=== PATIENT | female | born 1965 | race Caucasian/White ===

== ENCOUNTER → 2018-11-27 12:16 | Outpatient (CLI) | payer MEDICAID, SELFPAY ==
--- NOTE | 2018-10-31 16:51 | EKG12_ITS ---
Test Reason : PRE OP Blood Pressure : / mmHG Vent. Rate : 070 BPM Atrial Rate : 070 BPM P-R Int : 146 ms QRS Dur : 096 ms QT Int : 444 ms P-R-T Axes : 063 -04 084 degrees QTc Int : 479 ms Normal sinus rhythm Nonspecific ST and T wave abnormality Prolonged QT Abnormal ECG Confirmed by JU AGUILERA, JOSEFINA ([id number]), proposal editor IHSAN MORALES ([id number]) on 11/03/2018 12:07:21 PM Referred By: Jose Camp Confirmed By:JOSEFINA DODD MD
[2018-10-31 17:45] LABS: Hematocrit 20.6 % (37-47); Hemoglobin 6.7 g/dl (12.0-15.0); Mean Corp Hgb Conc 32.5 g/gl (32-36); Mean Corpuscular Hgb 29.6 pg (27.0-32.0); Mean Corpuscular Volume 91.2 fL (81-99); Mean Platelet Vol. 11.4 fl (6.2-12.0); Platelet Count 183 K/mm3 (150-450); RBC Distribution Width CV 14.8 % (11.6-14.6); RBC Distribution Width SD 47.2 fl (35.1-43.9); Red Blood Count 2.26 M/mm3 (4.2-5.4); White Blood Count 4.4 K/mm3 (4.4-11.0)
[2018-10-31 18:02] LABS: Scan Indicated on CBC? Y/N NO
[2018-10-31 18:03] LABS: Anion Gap 7 (5-15); BUN 84 mg/dL (7-18); BUN/Creat Ratio 17.1 RATIO (10-20); Calcium,Total 8.2 mg/dL (8.5-10.1); Chloride 107 mmol/L (98-107); Creatinine, Serum 4.92 mg/dL (0.55-1.02); EST Glomerular Filtration Rate 10 mL/min (>60); Est Glom Filt Rate - Afr Amer 12 mL/min (>60); Glucose 45 mg/dL (74-106); Potassium 4.1 mmol/L (3.5-5.1); Sodium Level 139 mmol/L (136-145)
== END ==
PROVIDERS: Family Provider Student in an Organized Health Care Education/Training Program; PCP Student in an Organized Health Care Education/Training Program; Referring Provider Surgery; Visit Provider Surgery
DX: R94.31 Abnormal electrocardiogram [ECG] [EKG] (principal); Z01.810 Encounter for preprocedural cardiovascular examination; Z01.812 Encounter for preprocedural laboratory examination
CPT/HCPCS: 36415; 80048; 85027; 93005

== ENCOUNTER → 2018-12-12 16:29 | Outpatient (CLI) | payer MEDICAID, SELFPAY ==
[2018-12-08 14:15] VITALS: BMI 41.1
[2018-12-12 17:02] LABS: Glucose 661 mg/dL (74-106)
== END ==
PROVIDERS: Family Provider Student in an Organized Health Care Education/Training Program; PCP Student in an Organized Health Care Education/Training Program; Referring Provider Surgery; Visit Provider Surgery
DX: R73.9 Hyperglycemia, unspecified (principal)
CPT/HCPCS: 82947

== ENCOUNTER 2018-12-12 17:24 | Emergency (ER) | payer MEDICAID, SELFPAY ==
[2018-12-08 14:15] VITALS: BMI 41.1
[2018-12-12 17:25] VITALS: BP 151/69; PULSE 65; RESP 16; TEMP 36.9; O2SAT 97; BMI 39.1
[2018-12-12 17:46] LABS: Bedside Glucose > 500 mg/dL (70-110)
[2018-12-12 18:00] VITALS: BP 170/75; PULSE 64; RESP 18; O2SAT 97
--- NOTE | 2018-12-12 18:50 | RAD_ITS ---
STUDY: X-RAY CHEST REASON FOR EXAM: Female, 53 years old. Cough TECHNIQUE: Frontal view of the chest COMPARISON: None. FINDINGS: Post CABG changes are present. The lungs are clear. There are no pleural effusions. There is no pneumothorax. The heart is enlarged. The visualized osseous structures are within normal limits. RAD/Chest 1 View (Portable) IMPRESSION: No acute thoracic pathology. Cardiomegaly. Electronically Signed: Kvng Dozier, at 19:05 EDT Tel , Service support ,
--- NOTE | 2018-12-12 18:52 | ED.DCSUM_ITS ---
History of Present Illness Chief Complaint: Hyperglycemia Informant: Patient, - - Surgeon Onset: Today Narrative: Patient is a poorly controlled diabetic with chronic renal failure and in need of starting dialysis. She is scheduled to have an AV fistula surgery on Saturday, today is Saturday. She had some routine labs today because of that procedure, and her blood sugar is almost 800. It was repeated and is in the high 600s. She was sent for further evaluation and treatment. The patient states she is having no symptoms today. She has had blurry vision off and on for months, chronic bilateral lower extremity edema for a year or so since she has had kidney probl ems, and states that several hours before getting her blood work, before her last meal, her blood sugar was 200 when she checked it. She states she did not eat a lot of sugar for lunch. - Past Medical History (1) Chronic kidney disease (CKD) stage G5/A1, glomerular filtration rate (GFR) less than or equal to 15 mL/min/1.73 square meter and albuminuria creatinine ratio less than 30 mg/g Status: Chronic (2) Agitated depression Status: Chronic (3) Benign hypertension Status: Chronic (4) CAD (coronary artery disease) Status: Chronic (5) DKA (diabetic ketoacidoses) Status: Resolved Comment: History of DKA (6) HLD (hyperlipidemia) Status: Chronic (7) Obesity Status: Chronic (8) Type I diabetes mellitus, uncontrolled Status: Chronic Past Medical History - Allergies and Home Meds Allergies/Adverse Reactions: Allergies epoetin lazaro [From Procrit] Allergy (Verified 12/12/18 17:28) Hives rosiglitazone [From Avandia] Allergy (Verified 12/12/18 17:28) Unknown Sulfa (Sulfonamide Antibiotics) Allergy (Verified 12/12/18 17:28) Hives metoprolol [From Lopressor] Adverse Reaction (Verified 12/12/18 17:28) Nausea/Vom/Diarrhea tramadol [From Ultram] Adverse Reaction (Verified 12/12/18 17:28) Nausea/Vom/Diarrhea Primary Care Physician: Angelia Olson MD [Primary Care Provider] - Surgical History: appendectomy, cholecystectomy, hysterectomy, dilatation and curettage Smoking Status: Never smoker Drugs: None Review of Systems General: Denies: Chills, Fever, Sweats Eyes: Denies: Visual changes - bilaterally, Diplopia ENT: Denies: Rhinorrhea, Sore throat Cardiovascular: Denies: Chest pain, Palpitations Respiratory: Reports: Cough, Dyspnea on exertion. Denies: Dyspnea, Orthopnea, Paroxysmal nocturnal dyspnea Gastrointestinal: Denies: Abdominal pain, Nausea, Vomiting, Diarrhea, Melena, Hematochezia Genitourinary: Denies: Dysuria, Hematuria, Frequency Musculoskeletal: Reports: Swelling - Bilateral lower extremity, chronic, unchanged. Denies: Neck pain, Back pain, Extremity Pain Skin: Denies: Rash, Wounds Neurological: Denies: Headache, Weakness, Numbness Physical Exam Vital Signs/Narrative: Vital Signs Temp Pulse Resp BP Pulse Ox 12/12/18 18:00 64 18 170/75 H 97 12/12/18 17:25 98.5 F 65 16 151/69 H 97 Inital Vital Signs reviewed: Yes General: Well nourished, Well developed, Obese, No Acute Distress Head: Normocephalic, Atraumatic Eyes: Perrl, EOMI ENT: Moist mucous membranes, No rhinorrhea Neck: Supple, Nontender Cardiovascular: Regular rate, Regular rhythm, Murmur - Systolic, 2/6 Respiratory: No distress, CTA bilaterally, Chest nontender Abdomen: Soft, Nontender, Nondistended, Normal bowel sounds Back: Nontender, Normal Inspection. Negative for: CVA tenderness Extremities: Nontender, Edema - 3+ bilateral lower extremity, symmetric, 2 knees or proximal Skin: Normal color, No rash, No Trauma Neurological: Alert, Oriented x3, Cranial nerves II-XII grossly intact, Normal Strength, Normal Sensation Psychological: Normal Mood. Negative for: Normal affect - Flat affect Diagnostic/Tx/Re-eval Impressions Chest X-Ray 12/12/18 18:50 IMPRESSION: No acute thoracic pathology. Cardiomegaly. Electronically Signed: Kvng Dozier, at 19:05 EDT Tel , Service support , 12/12/18 18:50 CXR [Chest 1 View (Portable)] [RAD] Stat Laboratory Results 12/12/18 12/12/18 12/12/18 17:42 19:00 19:05 Urine Color Yellow Urine Clarity Sl. Cloudy Urine pH 6.0 Ur Specific [place] 1.015 Urine Protein 500 H Urine Glucose (UA) 1000 H Urine Ketones 5 H Urine Occult Blood Negative Urine Nitrite Negative Urine Bilirubin Negative Urine Urobilinogen Normal Ur Leukocyte Esterase Negative Urine RBC 0 SEEN Urine WBC 0 SEEN Ur Squamous Epith Cells 0-5 SEEN Amorphous Sediment 1+ URATE Urine Bacteria 0 SEEN Hyaline Casts 0-5 SEEN Urine Mucus 0 SEEN Acetone Level NEGATIVE POC Glucose > 500 H* 12/12/18 12/12/18 12/12/18 19:09 19:53 21:08 Urine Color Urine Clarity Urine pH Ur Specific [place] Urine Protein Urine Glucose (UA) Urine Ketones Urine Occult Blood Urine Nitrite Urine Bilirubin Urine Urobilinogen Ur Leukocyte Esterase Urine RBC Urine WBC Ur Squamous Epith Cells Amorphous Sediment Urine Bacteria Hyaline Casts Urine Mucus Acetone Level POC Glucose 458 H* 451 H* 289 H 12/12/18 22:04 Urine Color Urine Clarity Urine pH Ur Specific [place] Urine Protein Urine Glucose (UA) Urine Ketones Urine Occult Blood Urine Nitrite Urine Bilirubin Urine Urobilinogen Ur Leukocyte Esterase Urine RBC Urine WBC Ur Squamous Epith Cells Amorphous Sediment Urine Bacteria Hyaline Casts Urine Mucus Acetone Level POC Glucose 261 H - Medical Decision Making Patient was placed on an insulin drip for a couple hours in the emergency department. Her blood sugar came down quicker than expected, she felt shaky, her blood sugar was in the high 200s we stopped the drip. I checked it again a 1/2-hour later and it was a little lower at 260. She is feeling fine. She is not in DKA. She does not meet criteria for admission and she understands this and she prefers to go home anyway. I think that is fine but she is advised to watch her sugars very carefully and to keep them controlled as much as she is able so that she is able to have her procedure on Saturday. She understands and is encouraged to return to the ER for any other issues until then. ED Disposition - Plan for ED Patient: Disposition: Home or Assisted Living Diagnosis: Hyperglycemia due to type 2 diabetes mellitus, Chronic renal failure Instructions: ED Hyperglycemia Diabetic Referrals: Angelia Olson MD [Primary Care Provider] - 3-5 Days if not improving Additional Instructions: Check your blood sugars multiple times throughout the next couple days, use your insulin to keep your blood sugars under control as much as you are able. Return to the ER if you are worse.
[2018-12-12 19:15] LABS: Bedside Glucose 458 mg/dL (70-110)
[2018-12-12 19:16] LABS: Bacteria 0 SEEN /hpf (None Seen); Mucous, Urine 0 SEEN /hpf (<or=2+); Red Blood Cells-Urine 0 SEEN /hpf (0-5); White Blood Cells 0 SEEN /hpf (0-5)
[2018-12-12 19:31] LABS: Color, Urine Yellow (Yellow); Glucose, Dipstick 1000 mg/dl (Normal); Ketone-Dipstick 5 mg/dl (Negative); Leukocyte Esterase-Dipstick Negative /ul (Negative); Nitrite-Dipstick Negative (Negative); Occult Blood-Urine Negative /ul (Negative); Protein-Dipstick 500 mg/dl (Negative); Specific Gravity, Urine 1.015 (1.002-1.030); Urine Bilirubin Dipstick Negative (Negative); Urine Clarity Sl. Cloudy (Clear); Urine Urobilinogen Normal (Normal)
[2018-12-12 19:52] LABS: Amorphous Sediment 1+ URATE; Hyaline Cast 0-5 SEEN /lpf (0-5); Squamous Epithelial Cells - UA 0-5 SEEN /hpf (5-10)
[2018-12-12 20:13] VITALS: BP 173/74; PULSE 63; RESP 18; O2SAT 94
[2018-12-12 20:16] LABS: Bedside Glucose 451 mg/dL (70-110)
[2018-12-12 21:16] LABS: Bedside Glucose 289 mg/dL (70-110)
[2018-12-12 22:02] VITALS: BP 161/74; PULSE 62; RESP 17; O2SAT 94
[2018-12-12 22:10] LABS: Bedside Glucose 261 mg/dL (70-110)
== END 2018-12-12 23:25 | disposition home or self-care (01) ==
PROVIDERS: Emergency Provider Emergency Medicine; Family Provider Student in an Organized Health Care Education/Training Program; PCP Student in an Organized Health Care Education/Training Program
DX: E11.65 Type 2 diabetes mellitus with hyperglycemia (principal); E11.22 Type 2 diabetes mellitus with diabetic chronic kidney disease; F32.9 Major depressive disorder, single episode, unspecified; I12.9 Hypertensive chronic kidney disease with stage 1 through stage 4 chronic kidney disease, or unspecified chronic kidney disease; N18.9 Chronic kidney disease, unspecified; I25.10 Atherosclerotic heart disease of native coronary artery without angina pectoris; E78.5 Hyperlipidemia, unspecified; E66.9 Obesity, unspecified; Z88.2 Allergy status to sulfonamides; Z90.49 Acquired absence of other specified parts of digestive tract; Z90.710 Acquired absence of both cervix and uterus
CPT/HCPCS: 71045; 81001; 82009; 82947; 82962; 99283; A4216

== ENCOUNTER 2018-12-15 05:26 | Day surgery (SDC) | payer MEDICAID, SELFPAY ==
[2018-10-29 13:26] VITALS: BMI 41.1
--- NOTE | 2018-12-09 10:50 | HP_ITS ---
Intake Vital Signs 12/08/18 Body Mass Index (BMI) 41.1 12/08/18 Height 5 ft 5 in 12/08/18 Weight: 235 lb 12/08/18 Body Mass Index (BMI) 39.1 12/08/18 Blood Pressure 144/78 H 12/08/18 Blood Pressure Location Lt brachial 12/08/18 Blood Pressure Position Sitting 12/08/18 Respiratory Rate 14 12/08/18 Pulse Rate 61 12/08/18 Pulse Source Monitor 12/08/18 Temperature 97.8 F 12/08/18 Temperature Source Oral 12/08/18 Pulse Ox 97 12/08/18 Oxygen Delivery Method room air Intake Visit Reasons: upate h&p L fa xpos 6-10 Allergies rosiglitazone [From Avandia] Allergy (Verified 10/30/18 15:44) Unknown Sulfa (Sulfonamide Antibiotics) Allergy (Verified 10/30/18 15:44) Hives metoprolol [From Lopressor] Adverse Reaction (Verified 10/30/18 15:44) Nausea/Vom/Diarrhea tramadol [From Ultram] Adverse Reaction (Verified 10/30/18 15:44) Nausea/Vom/Diarrhea Medications Aspirin E.C. [Ecotrin] 81 mg PO DAILY@0800 02/10/16 [History Confirmed 10/30/18] Atorvastatin Calcium [Lipitor] 80 mg PO QHS 02/10/16 [History Confirmed 10/30/18] Buspirone HCl 7.5 mg PO BID 02/10/16 [History Confirmed 10/30/18] Carvedilol [Coreg] 25 mg PO BID 02/10/16 [History Confirmed 10/30/18] Cholecalciferol (Vitamin D3) [Vitamin D3] 5,000 unit PO DAILY 02/10/16 [History Confirmed 10/30/18] Citalopram [Celexa] 40 mg PO DAILY 02/10/16 [History Confirmed 10/30/18] Levothyroxine [Synthroid] 112 mcg PO DAILY 02/10/16 [History Confirmed 10/30/18] Multivitamins,Therapeutic [Multivitamin] 1 tab PO DAILY 02/10/16 [History Confirmed 10/30/18] apixaban 2.5 mg tablet 2.5 mg PO BID 10/29/18 [History Confirmed 10/30/18] bumetanide 2 mg tablet 2 mg PO BID 10/29/18 [History Confirmed 10/30/18] ferrous sulfate 325 mg (65 mg iron) tablet 325 mg PO DAILY tab 10/29/18 [History Confirmed 10/30/18] hydralazine 25 mg tablet 25 mg PO LUNCH tab 10/29/18 [History Confirmed 10/30/18] hydralazine 50 mg tablet 50 mg PO BID tab 10/29/18 [History Confirmed 10/30/18] insulin glargine (U-300) conc. 300 unit/mL (1.5 mL) subcutaneous pen 24 unit SC QHS 10/29/18 [History Confirmed 10/30/18] insulin lispro (U- 100) 100 unit/mL subcutaneous solution 18 unit SC TID 10/29/18 [History Confirmed 10/30/18] metoclopramide 10 mg tablet 10 mg PO Q6H PRN 10/29/18 [History Confirmed 10/30/18] pantoprazole 40 mg tablet,delayed release 40 mg PO BID 10/29/18 [History Confirmed 10/30/18] promethazine 12.5 mg tablet 12.5 mg PO Q6H PRN 10/29/18 [History Confirmed 10/30/18] Acetaminophen [Tylenol Arthritis] 650 mg PO Q8H PRN 10/30/18 [History Confirmed 10/30/18] PFS Medical History Chronic kidney disease (CKD) stage G5/A1, glomerular filtration rate (GFR) less than or equal to 15 mL/min/1.73 square meter and albuminuria creatinine ratio less than 30 mg/g (Acute) Anemia (Acute) Anxiety and depression (Acute) Atrial fibrillation (Acute) CHF (congestive heart failure) (Acute) Diabetes (Acute) GERD (gastroesophageal reflux disease) (Acute) Heart disease (Acute) Hypothyroidism (Acute) Rheumatoid arthritis (Acute) Sleep apnea (Acute) HTN (hypertension) (Chronic) Surgical History History of appendectomy (Acute) History of bilateral carpal tunnel release (Acute) History of cardiac catheterization (Acute) History of cholecystectomy (Acute) History of colonoscopy (Acute) History of hysterectomy (Acute) History of rotator cuff surgery (Acute) history of cabg x4 (Acute) Family History Mother Heart disease Crohns disease Brother Heart disease Social History Smoking Status: Never smoker alcohol intake: never substance use type: does not use caffeine: Yes what type of physical activity do you participate in: walking frequency: 1-2 times per week HPI HPI HPI: ERIKA DE LUNA, is a 53 F who presents to the office today for HPI HPI Surgical H&P: Yes HPI: ERIKA DE LUNA, is a 53 F who presents to the office today for an update history and physical for an upcoming transposition left forearm cephalic vein to radial artery arteriovenous hemodialysis fistula creation. Patient noted an ED visit since the last time she was in our office. Patient had a Procrit injection. She developed hives and was given a steroid which in turn increased her glucose level. She denies being admitted for the reaction. Patient is not currently on dialysis. She follows with Dr. Murry, 2nd pressman out of [place]. She notes he would like her to start dialysis in the very near future. She would dialyze at [facility] when she starts. Patient is currently on Eliquis and ASA for A Fib. She denies previous myocardial infarction, stroke, and blood clots. Patient has had difficulty with decreased hemoglobin. Patient was evaluated by Dr. Murry. Clearance was given to proceed with the proposed procedure. Patient's previous history per Dr. Camp: ERIKA DE LUNA, is a 53 F who presents to the office today for surgical consultation regarding arteriovenous hemodialysis fistula creation. The patient is referred kindly by her 2nd pressman [address]. Abelardo Mejia a written compromise surgical consult recommendations will be returned to him. The patient's been a long-term diabetic since 1996. She claims that she checks her sugars at least 3-4 times per day. May 2014 she had coronary bypass grafting x4. That was an evaluation and treatment of chest pain. She denies myocardial infarction. She is right arm dominant. She has had multiple hospitalizations. She states that they are typically either for chronic kidney disease or diabetes out of control. On October 24, 2018 at [facility] she had vein mapping for fistula performed. Interpretation simply states no focal venous abnormality. Unfortunately that study does not give me the dimensions of the veins interrogated. She is on multiple different medications including aspirin and Eliquis. She is not sure why she is on the Eliquis. As of October 06, 2018 her white blood cell count was 5.9 with hemoglobin 9.3 hematocrit 25.7 platelet count 179,000. BUN was 53 and creatinine 3.9 with a GFR of 12. She currently is denying any chest pain or palpitations. ROS General General: Yes weight change and fatigue; no appetite, colon cancer, breast cancer or weakness HEENT HEENT: No difficulty swallowing, eye injury, eye surgery, swollen glands or hoarseness Endo Endocrine: Yes thyroid disease and diabetes mellitus; no thyroid cancer, Hair loss, heat intolerance or cold intolerance Musc Musculoskeletal: Yes arthritis and rheumatoid arthritis; no back problems, gout or joint pain Cardio Cardiovascular: Yes murmur, heart disease, atrial fibrillation and high blood pressure; no pacemaker, heart attack, heart stent, palpitations, shortness of breat with exertion or chest pain Psych Psychiatric: Yes depression and anxiety; no hearing voices Resp Respiratory: No shortness of breath, Yes sleep apnea, No cough, No COPD, No asthma, No emphysema, No wheezing Gastro Gastrointestinal: No abdominal pain, Yes nausea or vomiting, Yes diarrhea, Yes constipation, No blood in stool, Yes acid reflux, No hemorrhoids, No ulcers, No gallbladder problem, No black,tarry stools Neuro Neurologic: No weakness Exam Const General: cooperative, comfortable, no acute distress [facility] Head: normal to inspection Eyes General: appearance normal, both eyes and all related structures Neck Neck: normal visual inspection Neck mass: No Resp Effort & Inspection: normal respiratory effort Auscultation: clear to auscultation bilaterally Cardio Rate: regular rate Rhythm: regular rhythm Heart Sounds: murmur GI Inspection: normal to inspection Palpation: soft Auscultation: normal bowel sounds Skin General: no rashes or lesions noted Neuro General: no focal motor deficits, CN's II-XI intact bilaterally Extrem General: normal to inspection Psych Appearance: grossly normal Affect: normal affect Assessment & Plan Problems 1. Chronic kidney disease (CKD) stage G5/A1, glomerular filtration rate (GFR) less than or equal to 15 mL/min/1.73 square meter and albuminuria creatinine ratio less than 30 mg/g N18.[address] Camp will plan to perform a transposition left forearm cephalic vein to radial artery arteriovenous hemodialysis fistula creation. Procedure details, risks, and benefits have been reviewed. Patient has had the opportunity to ask and have questions answered. Patient verbally understands and agrees with the plan. Plan to hold Eliquis for 2 days prior to the procedure. May continue ASA. Coding Level of Care Code No Charge Diagnoses Chronic kidney disease (CKD) stage G5/A1, glomerular filtration rate (GFR) less than or equal to 15 mL/min/1.73 square meter and albuminuria creatinine ratio less than 30 mg/g N18.5 Comment Update H&P 12/09/18 1050 <Electronically signed by Samantha Orellana PA-C> Date Samantha Orellana PA-C Addendum On preoperative laboratory the patient was noted to have a markedly elevated serum glucose. It was rechecked and still noted to be elevated He was sent to the [facility] emergency room and underwent urgent treatment. It was felt that she did not meet criteria for discharge. She was given strict instructions regarding glucose management for over the weekend to make it possible to proceed with surgery today. The patient remains with significant multiple medical comorbidities including chronic severe anemia and glucose control and medical noncompliance Jose Camp M.D., F.A.C.S.
--- NOTE | 2018-12-12 14:24 | EKG12_ITS ---
Test Reason : PREOP 12/15/18 Blood Pressure : / mmHG Vent. Rate : 061 BPM Atrial Rate : 061 BPM P-R Int : 162 ms QRS Dur : 096 ms QT Int : 460 ms P-R-T Axes : 045 011 058 degrees QTc Int : 463 ms Normal sinus rhythm Possible Left atrial enlargement Nonspecific T wave abnormality Prolonged QT Abnormal ECG Confirmed by JU AGUILERA, JOSEFINA ([id number]), editor city [place] OLIVEIRA ([id number]) on 12/17/2018 11:29:17 AM Referred By: Jose Camp Confirmed By:JOSEFINA DODD MD
[2018-12-12 14:57] LABS: Hematocrit 23.4 % (37-47); Hemoglobin 7.7 g/dl (12.0-15.0); Mean Corp Hgb Conc 32.9 g/gl (32-36); Mean Corpuscular Hgb 29.5 pg (27.0-32.0); Mean Corpuscular Volume 89.7 fL (81-99); Mean Platelet Vol. 12.1 fl (6.2-12.0); Platelet Count 138 K/mm3 (150-450); RBC Distribution Width CV 13.4 % (11.6-14.6); RBC Distribution Width SD 43.6 fl (35.1-43.9); Red Blood Count 2.61 M/mm3 (4.2-5.4); White Blood Count 6.6 K/mm3 (4.4-11.0)
[2018-12-12 15:01] LABS: Scan Indicated on CBC? Y/N NO
[2018-12-12 15:38] LABS: Anion Gap 19 (5-15); BUN 78 mg/dL (7-18); Chloride 95 mmol/L (98-107); Creatinine, Serum 6.02 mg/dL (0.55-1.02); EST Glomerular Filtration Rate 8 mL/min (>60); Est Glom Filt Rate - Afr Amer 9 mL/min (>60); Glucose 767 mg/dL (74-106); Potassium 4.8 mmol/L (3.5-5.1); Sodium Level 128 mmol/L (136-145)
[2018-12-15] VITALS (10 sets, daily range): BP systolic 139–166; BP diastolic 60–73; PULSE 59–66; RESP 14–16; TEMP 36.4–36.8; O2SAT 92–99; BMI 39.2
[2018-12-15 06:16] LABS: Bedside Glucose 119 mg/dL (70-110)
--- NOTE | 2018-12-15 07:19 | DCINST_ITS ---
Discharge Diet: Renal Diet Discharge Activity: May Not Drive - for 2-3 days or while taking narcotic pain medications., May Shower, May Take a Tub Bath - in 5 days. Lifting Restrictions: 5 pounds Keep extremity elevated above heart level: - - Keep arm elevated above the heart level for 3 days. Additional Activity Instructions:: Exercise hand vigorously with a stress ball. Call your doctor if your incision/area has: Continuous Slow Oozing, Sudden Increased Bleeding - apply pressure and call your doctor., Increased Pain/ Swelling, Increased Redness, Foul Smelling Discharge Call your doctor if you observe: Fever of 101 or Higher Suture Line Care: Avoid Pulling/Pushing, Avoid Pinching/Bending Cleanse incision/area with: Keep Dressing Clean & Dry Additional Dressing/Incision Instructions:: Change or remove dressing in one day. May protect with a gauze bandaid. Allergies/Adverse Reactions: Allergies epoetin lazaro [From Procrit] Allergy (Verified 12/12/18 17:28) Hives rosiglitazone [From Avandia] Allergy (Verified 12/12/18 17:28) Unknown Sulfa (Sulfonamide Antibiotics) Allergy (Verified 12/12/18 17:28) Hives metoprolol [From Lopressor] Adverse Reaction (Verified 12/12/18 17:28) Nausea/Vom/Diarrhea tramadol [From Ultram] Adverse Reaction (Verified 12/12/18 17:28) Nausea/Vom/Diarrhea Medications to take at Discharge Aspirin E.C. [Ecotrin] 81 mg PO DAILY@0800 02/10/16 Atorvastatin Calcium [Lipitor] 80 mg PO QHS 02/10/16 Buspirone HCl 7.5 mg PO BID 02/10/16 Carvedilol [Coreg] 25 mg PO BID 02/10/16 Cholecalciferol (Vitamin D3) [Vitamin D3] 5,000 unit PO DAILY 02/10/16 Citalopram [Celexa] 40 mg PO DAILY 02/10/16 Levothyroxine [Synthroid] 112 mcg PO DAILY 02/10/16 Multivitamins,Therapeutic [Multivitamin] 1 tab PO DAILY 02/10/16 apixaban 2.5 mg tablet 2.5 mg PO BID 10/29/18 bumetanide 2 mg tablet 2 mg PO BID 10/29/18 ferrous sulfate 325 mg (65 mg iron) tablet 325 mg PO DAILY tab 10/29/18 hydralazine 50 mg tablet 50 mg PO TID tab 10/29/18 insulin glargine (U-300) conc. 300 unit/mL (1.5 mL) subcutaneous pen 24 unit SC QHS 10/29/18 metoclopramide 10 mg tablet 10 mg PO Q6H PRN 10/29/18 pantoprazole 40 mg tablet,delayed release 40 mg PO BID 10/29/18 promethazine 12.5 mg tablet 12.5 mg PO Q6H PRN 10/29/18 Acetaminophen [Tylenol Arthritis] 650 mg PO Q8H PRN 10/30/18 Amlodipine Besylate [Norvasc] 10 mg PO DAILY 12/11/18 Insulin Lispro [Admelog] 18 unit SQ TID 12/11/18 Primary Care Physician: Angelia Olson MD [Primary Care Provider] - Test Results: Test results from this visit will be discussed in further detail at your follow- up appointment, if applicable. Please Follow Up With: Jose Camp MD - [phone] When: Call to make an appointment for follow up in 1 week.
[2018-12-15] MEDS: Heparin Injection (Vial) 5,000 UNIT/ML VIAL 5000 UNIT (07:32)
[2018-12-15] MEDS: Bupivacaine Mpf 0.5% 30 ML VIAL (08:45)
--- NOTE | 2018-12-15 08:51 | PCM.OPRPT ---
Problem List (1) Chronic kidney disease (CKD) stage G5/A1, glomerular filtration rate (GFR) less than or equal to 15 mL/min/1.73 square meter and albuminuria creatinine ratio less than 30 mg/g Status: Chronic Report of Operation Date of Procedure: 12/15/18 Pre-Operative Diagnosis: stage IV chronic renal failure Post-Operative Diagnosis: Same Surgery/Procedure Performed:: Transposition left forearm cephalic vein to radial artery arteriovenous hemodialysis fistula creation Description of Surgical Findings:: Timeout and informed consent was obtained. 53-year-old female was taken out from placement table underwent monitored anesthesia care. The left upper extremity was sterilely prepped and draped. 22 cc of 1% lidocaine mixed 50-50 with 0.5% Marcaine and 5 cc of 1/2% lidocaine was used as a local anesthetic. Ultrasound was performed identifying the cephalic vein in the in the distal third of the forearm with the distal becoming quite diminutive. Local was instilled a longitudinal incision was created sharp and blunt dissection was used to identify the cephalic vein was dissected free side branches secured with 4-0 Vicryl ligatures and hemoclips it was completely dissected up to the antecubital space. In the anterior surface was inked marked. I measured the length. I made a longitudinal incision and down in the distal third of the forearm and sharp and blunt dissection was used to identify the radial artery. This was rather tedious as the patient is quite obese. Was able to get a ventral dissection of the radial artery several clips were placed to allow for better mobilization. Then I ligated the vein distally of the side branch with hemoclips and then I spatulated that area. I tunneled the vein with a tunneler from the antecubital space to the approximately distal third to mid forearm. The patient then received 10,000 units of heparin. Peripheral vascular clamps were placed on the radial radial artery 11 blade was used to make an arteriotomy which I extended with Jensen scissors. The vein at the branch point spatulation site was then placed in an end-to-side fashion with a running 7-0 Prolene. Prior to completion there is good arterial inflow the anastomosis was completed was immediately hemostatic. There was good flow in the fistula and good positional lie. The wounds were closed with a deep layer of interrupted 3-0 Vicryl's subcutaneous stitches. Skin edges proximal and running septic or 4-0 Monocryl. Steri-Strips Telfa soft roll Ren wrap applied. Sponge and instrument and needle counts were reported the surgeon for correct. Blood loss was actually quite minimal. Specimens none drains none blood loss minimal Patient had a very viable hand. She was taken to the recovery area in satisfactory condition without apparent complication. Jose Camp M.D., F.A.C.S. Type of Anesthesia:: Local MAC Anesthesiologist: Sania Barrett
--- NOTE | 2018-12-15 08:55 | OP.PCM_ITS ---
Problem List (1) Chronic kidney disease (CKD) stage G5/A1, glomerular filtration rate (GFR) less than or equal to 15 mL/min/1.73 square meter and albuminuria creatinine ratio less than 30 mg/g Status: Chronic Report of Operation Date of Procedure: 12/15/18 Pre-Operative Diagnosis: stage IV chronic renal failure Post-Operative Diagnosis: Same Surgery/Procedure Performed:: Transposition left forearm cephalic vein to radial artery arteriovenous hemodialysis fistula creation Description of Surgical Findings:: Timeout and informed consent was obtained. 53-year-old female was taken out fr om placement table underwent monitored anesthesia care. The left upper extremity was sterilely prepped and draped. 22 cc of 1% lidocaine mixed 50-50 with 0.5% Marcaine and 5 cc of 1/2% lidocaine was used as a local anesthetic. Ultrasound was performed identifying the cephalic vein in the in the distal third of the forearm with the distal becoming quite diminutive. Local was instilled a longitudinal incision was created sharp and blunt dissection was used to identify the cephalic vein was dissected free side branches secured with 4-0 Vicryl ligatures and hemoclips it was completely dissected up to the antecubital space. In the anterior surface was inked marked. I measured the length. I made a longitudinal incision and down in the distal third of the forearm and sharp and blunt dissection was used to identify the radial artery. This was rather tedious as the patient is quite obese. Was able to get a ventral dissection of the radial artery several clips were placed to allow for b monroe mobilization. Then I ligated the vein distally of the side branch with hemoclips and then I spatulated that area. I tunneled the vein with a tunneler from the antecubital space to the approximately distal third to mid forearm. The patient then received 10,000 units of heparin. Peripheral vascular clamps were placed on the radial radial artery 11 blade was used to make an arteriotomy which I extended with Jensen scissors. The vein at the branch point spatulation site was then placed in an end-to-side fashion with a running 7-0 Prolene. Prior to completion there is good arterial inflow the anastomosis was completed was immediately hemostatic. There was good flow in the fistula and good positional lie. The wounds were closed with a deep layer of interrupted 3-0 Vicryl's subcutane ous stitches. Skin edges proximal and running septic or 4-0 Monocryl. Steri- Strips Telfa soft roll Ren wrap applied. Sponge and instrument and needle counts were reported the surgeon for correct. Blood loss was actually quite minimal. Specimens none drains none blood loss minimal Patient had a very viable hand. She was taken to the recovery area in satisfactory condition without apparent complication. Jose Camp M.D., F.A.C.S. Type of Anesthesia:: Local MAC Anesthesiologist: Sania Barrett
[2018-12-15 10:25] LABS: Bedside Glucose 158 mg/dL (70-110)
== END 2018-12-15 14:48 | disposition home or self-care (01) ==
LOC: SDC 05:27 → AC 05:28
PROVIDERS: Family Provider Student in an Organized Health Care Education/Training Program; PCP Student in an Organized Health Care Education/Training Program; Referring Provider Surgery; Visit Provider Surgery
PROC: (CPT 36821; principal; 2018-12-15 07:00)
DX: I12.9 Hypertensive chronic kidney disease with stage 1 through stage 4 chronic kidney disease, or unspecified chronic kidney disease (principal); N18.4 Chronic kidney disease, stage 4 (severe); E11.22 Type 2 diabetes mellitus with diabetic chronic kidney disease; I48.91 Unspecified atrial fibrillation; Z95.1 Presence of aortocoronary bypass graft; E66.9 Obesity, unspecified; D64.9 Anemia, unspecified; Z91.19 Patient's noncompliance with other medical treatment and regimen; I25.10 Atherosclerotic heart disease of native coronary artery without angina pectoris; Z86.73 Personal history of transient ischemic attack (TIA), and cerebral infarction without residual deficits
CPT/HCPCS: 01844; 36821; 36415; 80048; 82962; 85027; 93005; J2405

== ENCOUNTER → 2019-04-02 11:02 | Outpatient (CLI) | payer MEDICAID, SELFPAY ==
[2018-12-15 05:57] VITALS: BMI 39.2
--- NOTE | 2019-04-02 11:04 | VDUE_ITS ---
Reason For Study: Chronic kidney disease Right Arm Left Arm Right Cephalic Vein at the wrist measures Lt failed Radialcephalic AVF noted. 0.10 x 0.12 cm. Left Cephalic Vein above antecub measures 0.12 Right Cephalic Vein in the forearm measures x 0.13 cm. 0.20 x 0.21 cm. Left Cephalic Vein at mid bicep measures 0.17 Right Cephalic Vein below antecub measures x 0.23 cm. 0.20 x 0.22 cm. Left Cephalic Vein at the shoulder measures Right Cephalic Vein above antecub measures 0.18 x 0.25 cm. 0.21 x 0.23 cm. Basilic vein at origin measures 0.51 x 0.53 Right Cephalic Vein mid bicep measures 0.18 cm. x 0.19 cm. Basilic vein at bicep measures 0.45 x 0.47 cm. Right Cephalic Vein at the shoulder Basilic vein above antecub measures 0.64 x measures 0.18 x 0.17 cm. 0.69 cm. Right Basilic Vein at the origin measures Lt Brachial artery measures 0.41 x 0.39 cm 0.38 x 0.41 cm. with a velocity of 149.3 cm/sec. Right Basilic Vein mid bicep measures 0.23 x 0.25 cm. Right Basilic Vein above antecub measures 0.20 x 0.23 cm. Right Brachial artery measures 0.45 x 0.45 cm with a velocity of 128.6 cm/sec. Right Radial artery measures 0.17 x 0.17 cm with a velocity of 100 cm/sec. Interpretation Summary Patent and compressible bilateral cephalic and basilic veins other than thrombosed left forearm radiocephalic fistula Normal diameter and flow bilateral brachial arteries Small right radial artery Ordering Physician: Jose Camp Referring Physician: Angelia Olson Performed By: Willinger, Sirisha, RVT ?
== END ==
PROVIDERS: Family Provider Student in an Organized Health Care Education/Training Program; PCP Student in an Organized Health Care Education/Training Program; Referring Provider Surgery; Visit Provider Surgery
DX: N18.5 Chronic kidney disease, stage 5 (principal)
CPT/HCPCS: 93970

== ENCOUNTER 2019-04-20 06:58 | Day surgery (SDC) | payer MEDICAID, SELFPAY ==
--- NOTE | 2019-04-07 03:20 | HP_ITS ---
Intake Vital Signs 04/07/19 Body Mass Index (BMI) 39.2 04/07/19 Blood Pressure 150/71 H 04/07/19 Blood Pressure Location Rt brachial 04/07/19 Blood Pressure Position Sitting 04/07/19 Respiratory Rate 20 H 04/07/19 Pulse Rate 76 04/07/19 Pulse Ox 94 Intake Visit Reasons: Check Fistula Chief Complaint: fistula check Server Assistant Required: No Is patient in pain?: No Allergies epoetin lazaro [From Procrit] Allergy (Verified 04/07/19 14:50) Hives rosiglitazone [From Avandia] Allergy (Verified 04/07/19 14:50) Unknown Sulfa (Sulfonamide Antibiotics) Allergy (Verified 04/07/19 14:50) Hives metoprolol [From Lopressor] Adverse Reaction (Verified 04/07/19 14:50) Nausea/Vom/Diarrhea tramadol [From Ultram] Adverse Reaction (Verified 04/07/19 14:50) Nausea/Vom/Diarrhea Medications Aspirin E.C. [Ecotrin] 81 mg PO DAILY@0800 02/10/16 [History Confirmed 04/07/19] Atorvastatin Calcium [Lipitor] 80 mg PO QHS 02/10/16 [History Confirmed 04/07/19] Buspirone HCl 7.5 mg PO BID 02/10/16 [History Confirmed 04/07/19] Carvedilol [Coreg (Beta Sully)] 25 mg PO BID 02/10/16 [History Confirmed 04/07/19] Cholecalciferol (Vitamin D3) [Vitamin D3] 5,000 unit PO DAILY 02/10/16 [History Confirmed 04/07/19] Citalopram [Celexa] 40 mg PO DAILY 02/10/16 [History Confirmed 04/07/19] Levothyroxine [Synthroid] 112 mcg PO DAILY 02/10/16 [History Confirmed 04/07/19] Multivitamins,Therapeutic [Multivitamin] 1 tab PO DAILY 02/10/16 [History Confirmed 04/07/19] apixaban 2.5 mg tablet 2.5 mg PO BID 10/29/18 [History Confirmed 04/07/19] bumetanide 2 mg tablet 2 mg PO BID 10/29/18 [History Confirmed 04/07/19] ferrous sulfate 325 mg (65 mg iron) tablet 325 mg PO DAILY tab 10/29/18 [History Confirmed 04/07/19] hydralazine 50 mg tablet 50 mg PO TID tab 10/29/18 [History Confirmed 04/07/19] insulin glargine (U-300) conc. 300 unit/mL (1.5 mL) subcutaneous pen 24 unit SC QHS 10/29/18 [History Confirmed 04/07/19] metoclopramide 10 mg tablet 10 mg PO Q6H PRN 10/29/18 [History Confirmed 04/07/19] pantoprazole 40 mg tablet,delayed release 40 mg PO BID 10/29/18 [History Confirmed 04/07/19] promethazine 12.5 mg tablet 12.5 mg PO Q6H PRN 10/29/18 [History Confirmed 04/07/19] Acetaminophen [Tylenol Arthritis] 650 mg PO Q8H PRN 10/30/18 [History Confirmed 04/07/19] Amlodipine Besylate [Norvasc] 10 mg PO DAILY 12/11/18 [History Confirmed 04/07/19] Insulin Lispro [Admelog] 18 unit SQ TID 12/11/18 [History Confirmed 04/07/19] Is last menstrual period known: No Post menopausal: Yes Patient : No PFSH Medical History Chronic kidney disease (CKD) stage G5/A1, glomerular filtration rate (GFR) less than or equal to 15 mL/min/1.73 square meter and albuminuria creatinine ratio less than 30 mg/g (Chronic) Anemia (Acute) Anxiety and depression (Acute) Atrial fibrillation (Acute) CHF (congestive heart failure) (Acute) Diabetes (Acute) GERD (gastroesophageal reflux disease) (Acute) Heart disease (Acute) Hypothyroidism (Acute) Rheumatoid arthritis (Acute) Sleep apnea (Acute) HTN (hypertension) (Chronic) Surgical History History of appendectomy (Acute) History of bilateral carpal tunnel release (Acute) History of cardiac catheterization (Acute) History of cholecystectomy (Acute) History of colonoscopy (Acute) History of hysterectomy (Acute) History of rotator cuff surgery (Acute) history of cabg x4 (Acute) Family History Mother Heart disease Crohns disease Brother Heart disease Social History (Updated 04/07/19 @ 15:20 by Jose Camp MD) Smoking Status: Never smoker alcohol intake: never substance use type: does not use caffeine: Yes what type of physical activity do you participate in: walking frequency: 1-2 times per week HPI HPI HPI: ERIKA DE LUNA, is a 53 F who presents to the office today for HPI HPI Surgical H&P: Yes HPI: ERIKA DE LUNA, is a 53 F who presents to the office today for surgical consultation regarding a thrombosed left forearm transposed cephalic vein to radial artery AV fistula. On December 15, 2018 I performed this procedure for her. She states that she had utilized it for hemodialysis for approximately 1 month prior to clot being drawn out of it. In my absence she states that she is referred to [place] where she had an urgent fistulogram done and was told that the fistula was not salvageable. She had right internal jugular tunneled dialysis catheters placed. It is of note that this fistula failed in spite of her being on Eliquis and aspirin. On April 02, 2019 at the [facility] she had bilateral upper extremity vein mapping. This demonstrates a very diminutive left upper arm cephalic vein. The left upper arm basilic vein is adequate. The left forearm was not interrogated because of the report of the failed fistula. The patient has no specific complaints today. I do not have records of her fistulogram performed at [place] ROS General General: Yes weight change and fatigue; no appetite, colon cancer, breast cancer or weakness HEENT HEENT: No difficulty swallowing, eye injury, eye surgery, swollen glands or hoarseness Endo Endocrine: Yes thyroid disease and diabetes mellitus; no thyroid cancer, Hair loss, heat intolerance or cold intolerance Musc Musculoskeletal: Yes arthritis and rheumatoid arthritis; no back problems, gout or joint pain Cardio Cardiovascular: Yes murmur, heart disease, atrial fibrillation and high blood pressure; no pacemaker, heart attack, heart stent, palpitations, shortness of breat with exertion or chest pain Psych Psychiatric: Yes depression and anxiety; no hearing voices Resp Respiratory: No shortness of breath, Yes sleep apnea, No cough, No COPD, No asthma, No emphysema, No wheezing Gastro Gastrointestinal: No abdominal pain, Yes nausea or vomiting, Yes diarrhea, Yes constipation, No blood in stool, Yes acid reflux, No hemorrhoids, No ulcers, No gallbladder problem, No black,tarry stools Neuro Neurologic: No weakness Exam Const General: cooperative Nutritional Appearance: average body habitus Orientation: alert, awake Resp Effort & Inspection: normal respiratory effort Auscultation: clear to auscultation bilaterally Cardio Rate: regular rate Rhythm: regular rhythm Heart Sounds: murmur GI Inspection: normal to inspection Palpation: soft Auscultation: normal bowel sounds Neuro Cognition: normal cognition Extrem Other: Significant bilateral lower extremity edema Left upper extremity: Well-healed forearm incision. The transposed cephalic vein to radial artery AV fistula does have a pulse and thrill and bruit. On ultrasound inspection there is evidence of wall thickening or residual thrombus but a patent lumen is noted throughout. The left upper arm cephalic vein is diminutive. The left upper arm basilic vein adequate Assessment & Plan Problems 1. Problem with vascular access Z78.9 Plan Previous information that we had received suggested that her left forearm AV fistula was completely thrombosed. That is clinically not the case both palpation and audible inspection and ultrasound. The patient does have future limited potential options for fistula creation. I proposed for her a repeat attempt at a left forearm fistulogram. I would anticipate using ultrasound access close to the antecubital space retrograde with flow. I would anticipate likely a long balloon treatment. She has had an opportunity to ask and have questions answered. She is willing to proceed as noted. If this is not successful then I would anticipate a future transposed left upper arm basilic vein to brachial artery AV fistula in one stage approach. The patient's left upper arm basilic vein has already partially matured. CC: Dr. Abelardo Camp M.D., F.A.C.S. Coding Level of Care Code Off vis,est,level 3 Diagnoses Problem with vascular access Z78.9 04/07/19 1520 <Electronically signed by Jose parson MD> Date _ Jose Camp MD I have re-examined the patient. There are no clinical changes since date of exam.
[2019-04-07 14:51] VITALS: BMI 39.2
[2019-04-20 07:10] LABS: Hematocrit 25.3 % (37-47); Hemoglobin 8.7 g/dL (12.0-15.0); Mean Corp Hgb Conc 34.4 g/dL (32-36); Mean Corpuscular Hgb 30.9 pg (27.0-32.0); Mean Corpuscular Volume 89.7 fL (81-99); Mean Platelet Vol. 9.9 fl (6.2-12.0); Platelet Count 229 K/mm3 (150-450); RBC Distribution Width CV 15.2 % (11.6-14.6); RBC Distribution Width SD 49.1 fl (35.1-43.9); Red Blood Count 2.82 M/mm3 (4.2-5.4); White Blood Count 5.7 K/mm3 (4.4-11.0)
[2019-04-20 07:17] VITALS: BMI 36.6
[2019-04-20 07:23] LABS: Anion Gap 13 (5-15); BUN 75 mg/dL (7-18); BUN/Creat Ratio 13.5 RATIO (10-20); Calcium,Total 8.6 mg/dL (8.5-10.1); Chloride 97 mmol/L (98-107); Creatinine, Serum 5.55 mg/dL (0.55-1.02); EST Glomerular Filtration Rate 9 mL/min (>60); Est Glom Filt Rate - Afr Amer 10 mL/min (>60); Glucose 159 mg/dL (74-106); Potassium 4.6 mmol/L (3.5-5.1); Sodium Level 132 mmol/L (136-145)
--- NOTE | 2019-04-20 09:21 | PCM.OPRPT ---
Problem List (1) Problem with vascular access Status: Acute Report of Operation Date of Procedure: 04/20/19 Pre-Operative Diagnosis: Diminished flow left forearm transposed cephalic vein to radial artery arteriovenous hemodialysis fistula. Post-Operative Diagnosis: Diffuse mid forearm venous stenosis Surgery/Procedure Performed:: Left upper extremity fistulogram with double access antegrade and retrograde and 6 x 80 mm ever cross angioplasty Description of Surgical Findings:: Timeout and informed consent consent was obtained. 53-year-old female was taken to the special procedures lab. She was placed on the table. The left upper extremity was sterilely prepped draped. She received 50 mcg of fentanyl 1 mg Versed is intravenous sedation. Under ultrasound guidance retrograde with flow close to the antecubital space the transposed cephalic vein was identified. Local was instilled and then under ultrasound guided micropuncture needle was inserted into the vein micropuncture wire inserted 6 [place] short sheath was inserted. Using an 035 angled Glidewire and a 4 [place] glide catheter gain access to the radial artery proximal to the anastomosis. Fistulogram was obtained with Isovue. This demonstrated diffuse disease of the mid fistula and outflow portions close to the antecubital space. I placed a 6 x 80 mm ever cross balloon and I did do balloon angioplasty of the anastomosis and proximal portion of the fistula. Then using 2% lidocaine I gained access antegrade with flow closer to the wrist. Again I placed a micropuncture needle and wire and 6 [place] short sheath dilator. I then performed balloon angioplasty of the proximal forearm and antecubital outflow area. The majority of the outflow appeared to be via the basilic system. The balloon crossed from the cephalic to the basilic system angioplasty was performed up to 16 odilon of pressure was held for 2-1/2 minutes. Completion view was obtained now demonstrated irregularity of the vein but patency. The stenosis was resolved. Imaging demonstrates a transposed left forearm radial to cephalic AV fistula with diffuse areas of mid fistula stenosis. The majority the outflow is via the basilic vein of the upper arm and there is good central venous outflow. Subsequent to the angioplasty there was resolved areas of stenosis still some erratic vein particularly at the proximal forearm antecubital area but wide open straight in-line patency. The sheaths were removed U suture so 4-0 nylon was placed she tolerated procedure well there was a good pulse thrill and bruit at the completion no apparent complication. Specimens none. Drains none. Blood loss minimal. Jose Camp M.D., F.A.C.S. Type of Anesthesia:: IV Sedation, Local
== END 2019-04-20 10:35 | disposition home or self-care (01) ==
LOC: CLSP 06:59
PROVIDERS: Family Provider Student in an Organized Health Care Education/Training Program; PCP Student in an Organized Health Care Education/Training Program; Referring Provider Surgery; Visit Provider Surgery
DX: T82.868A Thrombosis due to vascular prosthetic devices, implants and grafts, initial encounter (principal); I13.2 Hypertensive heart and chronic kidney disease with heart failure and with stage 5 chronic kidney disease, or end stage renal disease; N18.5 Chronic kidney disease, stage 5; I50.9 Heart failure, unspecified; D63.1 Anemia in chronic kidney disease; F41.9 Anxiety disorder, unspecified; F32.9 Major depressive disorder, single episode, unspecified; E11.22 Type 2 diabetes mellitus with diabetic chronic kidney disease; E03.9 Hypothyroidism, unspecified; M06.9 Rheumatoid arthritis, unspecified; G47.30 Sleep apnea, unspecified; Z99.2 Dependence on renal dialysis; Z79.4 Long term (current) use of insulin; Z79.82 Long term (current) use of aspirin; Z79.02 Long term (current) use of antithrombotics/antiplatelets; Z79.899 Other long term (current) drug therapy
CPT/HCPCS: 36415; 36902; 76937; 80048; 85027; 99152; 99153; Q9967; C1725; C1769

== ENCOUNTER 2020-06-07 08:53 | Inpatient (IN) | payer MEDICARE, MEDICAID, SELFPAY ==
[2019-07-28 13:23] VITALS: BMI 36.6
[2020-06-07] VITALS (11 sets, daily range): BP systolic 145–193; BP diastolic 51–87; PULSE 66–82; RESP 12–18; TEMP 36.4–37.1; O2SAT 96–100; BMI 35.2
--- NOTE | 2020-06-07 08:19 | HP.PCM_ITS ---
Problem List (1) NSTEMI (non-ST elevated myocardial infarction) Status: Acute (2) PAF (paroxysmal atrial fibrillation) Status: Acute (3) Problem with vascular access Status: Resolved (4) Chronic kidney disease (CKD) stage G5/A1, glomerular filtration rate (GFR) less than or equal to 15 mL/min/1.73 square meter and albuminuria creatinine ratio less than 30 mg/g Status: Chronic (5) Type I diabetes mellitus, uncontrolled Status: Chronic (6) DKA (diabetic ketoacidoses) Status: Resolved Comment: History of DKA (7) Obesity Status: Chronic (8) HLD (hyperlipidemia) Status: Chronic (9) CAD (coronary artery disease) Status: Chronic (10) Benign hypertension Status: Chronic (11) Agitated depression Status: Chronic History of Present Illness Date of Admission: 06/07/20 The patient is a 54 year old WF who presented yesterday to [facility] yesterday and was found to be in a-fib. She has a h/o PAF but states that she has had no episodes in awhile. She was sent home with [facility] but came back to the hospital when her sx persisted and was still in a-fib and was transferred to [facility] for further care. Pt states that she had mild CP associated but did c/o marked nausea and vomiting. She states that she had vomited about 20 times with the last time being about 2:30pm. She has had a CABG x 4 and had a cath she believes in the last 5 yrs and thinks it was done at [facility]. She follows with a software recruiter at [facility] but they had no beds for transfer. She is now c/o only mild nausea but is much better overall. She is on Coreg and Eliquis. Her last dose of Eliquis was yesterday PM a 11:30 pm. Her inital EKG was Afutter with RVR and a rate of 117. Her repeat EKG this am showed NSR with no ST-T wave abnormalities. Her troponin at OSH was 271.8 with upper limit of normal being 51.4. Repeat lab is pending. Past Medical History Past Medical History (Chronic Problems): Chronic Problems (Last Reviewed 07/28/19 @ 13:14 by Temi Gutierrez) Chronic kidney disease (CKD) stage G5/A1, glomerular filtration rate (GFR) less than or equal to 15 mL/min/1.73 square meter and albuminuria creatinine ratio less than 30 mg/g (Chronic) Type I diabetes mellitus, uncontrolled (Chronic) Obesity (Chronic) HLD (hyperlipidemia) (Chronic) CAD (coronary artery disease) (Chronic) Benign hypertension (Chronic) Agitated depression (Chronic) Medical History: Medical History (Last Reviewed 07/28/19 @ 13:14 by Temi Gutierrez) Problem with vascular access (Acute) Z78.9 Chronic kidney disease (CKD) stage G5/A1, glomerular filtration rate (GFR) less than or equal to 15 mL/min/1.73 square meter and albuminuria creatinine ratio less than 30 mg/g (Chronic) N18.5 Anemia D64.9 Anxiety and depression F41.9, F32.9 Atrial fibrillation I48.91 CHF (congestive heart failure) I50.9 Diabetes E11.9 GERD (gastroesophageal reflux disease) K21.9 Heart disease I51.9 Hypothyroidism E03.9 Rheumatoid arthritis M06.9 Sleep apnea G47.30 HTN (hypertension) I10 Allergies rosiglitazone [From Avandia] Allergy (Mild, Verified 06/07/20 08:08) Hives epoetin lazaro [From Procrit] Allergy (Verified 06/07/20 08:08) Hives Sulfa (Sulfonamide Antibiotics) Allergy (Verified 06/07/20 08:08) Hives metoprolol [From Lopressor] Adverse Reaction (Verified 06/07/20 08:08) Nausea/Vom/Diarrhea tramadol [From Ultram] Adverse Reaction (Verified 06/07/20 08:08) Nausea/Vom/Diarrhea Home Medications: Ambulatory Orders Medication Instructions Recorded Aspirin E.C. [Ecotrin] 81 mg PO DAILY@0800 02/10/16 Carvedilol [Coreg (Beta Sully)] 25 mg PO BID 02/10/16 Cholecalciferol (Vitamin D3) 5,000 unit PO DAILY 02/10/16 [Vitamin D3] Levothyroxine [Synthroid] 112 mcg PO DAILY 02/10/16 Multivitamins,Therapeutic 1 tab PO DAILY 02/10/16 [Multivitamin] apixaban 2.5 mg tablet 2.5 mg PO BID 10/29/18 ferrous sulfate 325 mg (65 mg 325 mg PO DAILY tab 10/29/18 iron) tablet hydralazine 50 mg tablet 100 mg PO TID tab 10/29/18 insulin glargine U-300 conc 300 16 unit SC QHS 10/29/18 unit/mL (1.5 mL) subcutaneous pen metoclopramide HCl 10 mg tablet 10 mg PO Q6H PRN 10/29/18 promethazine 12.5 mg tablet 12.5 mg PO Q6H PRN 10/29/18 Amlodipine Besylate [Norvasc] 10 mg PO DAILY 12/11/18 Insulin Lispro [Admelog] 10 unit SQ TID 12/11/18 omeprazole 20 mg capsule,delayed 20 mg PO DAILY 07/28/19 release Surgical History: Surgical History (Last Reviewed 07/28/19 @ 13:14 by Temi Gutierrez) History of appendectomy Z90.49 History of bilateral carpal tunnel release Z98.890 History of cardiac catheterization Z98.890 History of cholecystectomy Z90.49 History of colonoscopy Z98.890 History of hysterectomy Z90.710 History of rotator cuff surgery Z98.890 history of cabg x4 Surgical History: appendectomy, cholecystectomy, hysterectomy, dilatation and curettage Smoking Status: Never smoker Review of Systems Constitutional: Reports: Malaise, Weakness, Fatigue. Denies: Anorexia, Chills, Fever, Night Sweats, Weight Change Eyes: Reports: Cataracts - surgery. Denies: Blurred vision, Conjunctivae Inflammation, Double vision, Drainage, Pain, Redness, Vision Change HEENT: Denies: Difficulty Hearing, Difficulty Swallowing, Dysphasia, Ear Pain, Eye Pain, Hard of Hearing, Head Aches, Hearing Changes, Nasal bleeding, Nasal Congestion, Post Nasal Drip, Sinus Congestion, Sinus Drainage, Visual Changes Cardiovascular: Reports: Chest Pain - now resolved. Denies: Chest Pressure, Chest Tightness, Edema, Heaviness, Light Headedness, Orthopnea, Palpitations, Paroxysmal Noc. Dyspnea, Syncope Respiratory: Denies: Cough, Hemoptysis, Pleuritic Pain, Shortness of Breath, Shortness of breath at rest, Shortness of breath upon exertion, Sputum production, Wheezing Gastrointestinal: Reports: Nausea, Vomiting - resolved. Denies: Abdominal Pain, Constipation, Diarrhea, Dyspepsia, Hematemesis, Hematochezia, Melena Genitourinary: Denies: Dysuria, Frequency, Hematuria, Hesitancy, Incontinence, Nocturia, Retention, Urgency Musculoskeletal: Denies: Back Pain, Joint Pain, Joint stiffness, Joint swelling, Joint Tenderness, Muscle pain, Neck Pain, Shoulder Pain Skin: Denies: Dryness, Jaundice, Lesions, Pruritis, Rash Neurological: Reports: Numbness - chronic, Tingling - chronic. Denies: Balance problems, Blurred vision, Double vision, Change in Speech, Slurred speech, Confusion, Difficulty swallowing, Focal weakness, Headaches, Incoordination, Tremor, Seizures Psychiatric: Reports: Depression. Denies: Anxiety Endocrine: Denies: Change in Body Habitus, Heat/ Cold Intolerance, Polydipsia, Polyuria Hematologic/ Lymphatic: Reports: Anemia. Denies: Adenopathy, Easy Bruising, Easy Bleeding, Petechiae, Purpura VTE Information - Inpt Only VTE Present on Admission: No VTE Mechan Device Prophylaxis: None VTE Pharm Prophylaxis ordered?: Yes Patient Problems: Active and Suspected Problems (Last Reviewed 07/28/19 @ 13:14 by Temi Gutierrez) NSTEMI (non-ST elevated myocardial infarction) (Acute) PAF (paroxysmal atrial fibrillation) (Acute) - Physical Exam Vitals/I&O's: Vital Signs Temp Pulse Resp BP Pulse Ox 98.6 F 81 12 193/87 H 100 06/07/20 08:09 06/07/20 08:09 06/07/20 08:09 06/07/20 08:09 06/07/20 08:09 Oxygen Flow Rate (L/min) 2 Oxygen Delivery Method Nasal Cannula Weight: 98.8 kg Body Mass Index (BMI) 35.2 Finger Stick Blood Glucose 289 General: Alert, Oriented x3, Cooperative, No apparent distress, Well developed, Well nourished, - - overweight WF lying in bed, affect is flat but appears comfortable HEENT: Atraumatic, PERRLA, EOMI, Normocephalic, EAC Clear Oral: No Gingival or Mucosal Lesions/ Ulcerations, Dry Mucosa Neck: Supple, No JVD, Negative Hepatojugular Reflux, Trachea Midline, Thyroid Normal Size and Texture Lungs: Clear to auscultation, Normal air movement, No rhonchi, No wheeze, No rales Cardiovascular: Regular rate, Regular Rhythm, Normal S1, Normal S2, No murmurs, No Ectopic Activity, No rub noted, No Gallop Abdomen: Bowel Sounds Present, Soft, Non Tender, Non-Distended, No Hepato- splenomegaly, Obese, No hernias noted Extremities: No clubbing, No cyanosis, No edema, Capillary Refill Less than 3 Seconds, Peripheral Pulses Normal, - - L UE with fistula--> excellent Bruit and thrill Skin: No rashes, No breakdown Musculoskeletal: No Tenderness to Palpation of Joints or Extremities, No Muscle Wasting Lymphatic: No Cervical, Supraclavicular, or Inguinal Adenopathy Neurological: Cranial nerves II-XII grossly intact, Neuro grossly intact, Muscle tone normal, Coordination normal, - - decreased sensation B LE Psych/Mental Status: Appropriate, - - flat affect Current Medications Sodium Chloride (0.9% Saline Lock 10 Ml Syringe) 10 - 40 ml IV UD PRN PRN Reason: SALINE FLUSH Assessment/Plan All Active Problems (Last Reviewed 07/28/19 @ 13:14 by Temi Gutierrez) NSTEMI (non-ST elevated myocardial infarction) (Acute) PAF (paroxysmal atrial fibrillation) (Acute) DKA (diabetic ketoacidoses) (Resolved) Problem with vascular access (Resolved) A-Fib with RVR with H/O PAF -now resolved -continue Coreg -was on Cardizem ggt and now off -converted prior to transfer to this hospital -hold home Eliquis--> last dose was last pm at about 11:30 -start heparin ggt for now with trop elevation and hold OAC -check ECHO -consult cards NSTEMI -troponin elevated on their scale at [place] -check stat here and cycle -start heparin ggt -last dose of Eliquis was 11:30 pm yesterday -ASA full dose today -contniue home BB -statin -obtain records--> cath from [facility] ESRD on HD -HD MWF -consult Nephro 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
--- NOTE | 2020-06-07 08:31 | EKG12_ITS ---
Test Reason : Blood Pressure : / mmHG Vent. Rate : 079 BPM Atrial Rate : 079 BPM P-R Int : 140 ms QRS Dur : 102 ms QT Int : 420 ms P-R-T Axes : 072 -01 097 degrees QTc Int : 481 ms Normal sinus rhythm Left ventricular hypertrophy Prolonged QT Abnormal ECG Confirmed by JU AGUILERA, SHAI ([id number]), editorial director IHSAN MORALES ([id number]) on 06/08/2020 10:04:58 AM Referred By: Shai Eddy Confirmed By:SHAI DODD MD
[2020-06-07 08:58] LABS: Absolute Lymphocyte Count 0.66 X10^3/uL (0.83-4.51); Absolute Neutrophil Count 2.3 X10^3/uL (2.0-7.7); Basophil# 0.03 X10^3/uL; Basophil% 0.9 % (0-1); Eosinophil# 0.03 X10^3/uL; Eosinophils% 0.9 % (0-5); Hematocrit 21.4 % (37-47); Hemoglobin 7.3 g/dL (12.0-15.0); Lymphocyte # 0.66 X10^3/ul (4.0); Lymphocyte % 19.5 % (19-41); Mean Corp Hgb Conc 34.1 g/dL (32-36); Mean Corpuscular Volume 93.9 fL (81-99); Mean Platelet Vol. 10.1 fl (6.2-12.0); Monocyte# 0.33 X10^3/uL; Monocyte% 9.7 % (0-10); NRBC Flagged by Analyzer 0 % (0-5); Neutrophil # 2.31 X10^3/uL (2.7-7.7); Neutrophil % 68.1 % (47-70); Platelet Count 226 K/mm3 (150-450); RBC Distribution Width CV 13.9 % (11.6-14.6); RBC Distribution Width SD 46.5 fl (35.1-43.9); Red Blood Count 2.28 M/mm3 (4.2-5.4); White Blood Count 3.4 K/mm3 (4.4-11.0)
[2020-06-07 09:08] LABS: International Normalized Ratio 1.1; Prothrombin Time (Protime)PT. 13.8 SECONDS (11.7-14.9)
[2020-06-07 09:10] LABS: Partial Thromboplast Time 30.1 Seconds (24.1-36.2)
[2020-06-07 09:11] LABS: BNP,B-Type NATRIURETIC PEPTIDE 2454.5 pg/mL (0-100)
[2020-06-07 09:22] LABS: ALB/GLOB Ratio 0.9 RATIO (0.9-2.4); AST(SGOT) 17 U/L (15-37); Alanine Aminotransfer ALT/SGPT 12 U/L (13-56); Albumin, Serum 3.3 g/dL (3.2-5.0); Alkaline Phosphatase 134 U/L (45-117); Anion Gap 12 (5-15); BUN 38 mg/dL (7-18); BUN/Creat Ratio 5.7 RATIO (10-20); Calcium,Total 8.8 mg/dL (8.5-10.1); Chloride 96 mmol/L (98-107); Creatinine, Serum 6.67 mg/dL (0.55-1.02); EST Glomerular Filtration Rate 7 mL/min (>60); Est Glom Filt Rate - Afr Amer 8 mL/min (>60); Estimated Creatinine Clearance 9.13 ml/min; Globulin 3.5 g/dL (2.2-4.2); Glucose 126 mg/dL (74-106); Potassium 3.6 mmol/L (3.5-5.1); Protein, Total 6.8 g/dL (6.4-8.2); Sodium Level 136 mmol/L (136-145); Thyroid Stim Hormone (TSH) 5.02 uIU/mL (0.358-3.74)
[2020-06-07] MEDS: 0.9% Saline Lock 10 ML Syringe IV (09:57)
[2020-06-07] MEDS: proMETHazine 25 MG Tablet 12.5 MG PO (10:48)
[2020-06-07] MEDS: Aspirin 81 MG TAB.CHEW 324 MG PO (11:21)
[2020-06-07] MEDS: Pantoprazole Sodium 20 MG Tablet PO (11:21)
[2020-06-07] MEDS: amLODIPine 10 MG Tablet PO (11:21)
[2020-06-07] MEDS: Carvedilol 12.5 MG Tablet 25 MG PO ×2 (11:21→21:30)
--- NOTE | 2020-06-07 11:55 | PCM.CONS.R ---
Consultation - Renal 06/07/20 PCP/ Referring MD: Requesting physician: [] Primary care physician: Dr. Angelia Olson MD Reason for Consultation:: esrd - History of Present Illness History of Present Illness: The patient is a 54 year old F who presented with nausea and was found to have atrial fibrillation. She also has some mild chest pain associated with the nausea and vomiting. She vomited multiple times. Denies hematochezia melena hematemesis. Patient has no other complaints except nausea. Denies fever chills shortness of breath headache. She was found to have elevated troponin. Patient states that she sees a doctor coming from [place] at the dialysis unit and she dialyzes Saturday the last dialysis being yesterday. She has minimal residual urine output.Denies any other c/o . - Allergies Allergies: Allergies rosiglitazone [From Avandia] Allergy (Mild, Verified 06/07/20 08:08) Hives epoetin lazaro [From Procrit] Allergy (Verified 06/07/20 08:08) Hives Sulfa (Sulfonamide Antibiotics) Allergy (Verified 06/07/20 08:08) Hives metoprolol [From Lopressor] Adverse Reaction (Verified 06/07/20 08:08) Nausea/Vom/Diarrhea tramadol [From Ultram] Adverse Reaction (Verified 06/07/20 08:08) Nausea/Vom/Diarrhea - Current Medications Current Medications: Current Medications Acetaminophen (Acetaminophen 325 Mg Tablet) 650 mg PO Q6H PRN PRN PRN Reason: Pain Score 1-10/Temp > 100.7 F Al Hydroxide/Mg Hydroxide (Mag Hydrox/Al Hydrox/Simeth 30 Ml Udc) 30 ml PO Q6H PRN PRN PRN Reason: Gastric Burning Albuterol Sulfate (Albuterol 2.5 Mg/3 Ml Vial.Neb.) 2.5 mg INHALATION Q2H PRN PRN PRN Reason: SOB/Wheezing Amlodipine Besylate (Amlodipine 10 Mg Tablet) 10 mg PO DAILY [facility] Last Admin: 06/07/20 11:21 Dose: 10 mg Documented by: Aspirin (Aspirin E.C. 81 Mg Tablet) 81 mg PO DAILY@0800 [facility] Atorvastatin Calcium (Atorvastatin Calcium 80 Mg Tablet) 80 mg PO QHS [facility] Carvedilol (Carvedilol 12.5 Mg Tablet) 25 mg PO BID [facility] Last Admin: 06/07/20 11:21 Dose: 25 mg Documented by: Ferrous Sulfate (Ferrous Sulfate 325 Mg Tablet) 325 mg PO DAILY@1200 [facility] Hydralazine HCl (Hydralazine 50 Mg Tablet) 100 mg PO TID [facility] Insulin Glargine (Insulin Glargine 100 Units/Ml Pen) 16 units SC QHS [facility] Insulin Human Lispro (Insulin Lispro 100 Unit/Ml Insuln.Pen) 10 unit SC 0800,1200,1700 [facility] Insulin Human Lispro (Insulin Lispro 100 Unit/Ml Insuln.Pen) 0 unit SC TIDAC [facility]; Protocol Last Admin: 06/07/20 11:22 Dose: Not Given Documented by: Levothyroxine Sodium (Levothyroxine 112 Mcg Tablet) 112 mcg PO DAILY@0600 [facility] Melatonin (Melatonin 3 Mg Tablet) 3 mg PO QHS PRN PRN PRN Reason: INSOMNIA Metoclopramide HCl (Metoclopramide 10 Mg Tablet) 10 mg PO Q6H PRN PRN Reason: NAUSEA Morphine Sulfate (Morphine 2 Mg/Ml Syringe) 2 mg IV Q3H PRN PRN PRN Reason: Pain Score 6-10 Multivitamins (Multivitamins,Therapeutic Tablet) [facility] Nitroglycerin (Nitroglycerin (Inpatient Use) 0.4 Mg Tab.Subl) 0.4 mg SUBLINGUAL Q5M PRN PRN Reason: CARDIAC/CHEST PAIN Pantoprazole Sodium (Pantoprazole Sodium 20 Mg Tablet) 20 mg PO DAILY [facility] Last Admin: 06/07/20 11:21 Dose: 20 mg Documented by: Promethazine HCl (Promethazine 25 Mg Tablet) 12.5 mg PO Q6H PRN PRN Reason: NAUSEA Last Admin: 06/07/20 10:48 Dose: 12.5 mg Documented by: Sodium Chloride (0.9% Saline Lock 10 Ml Syringe) 10 - 40 ml IV UD PRN PRN Reason: SALINE FLUSH Last Admin: 06/07/20 09:57 Dose: 20 ml Documented by: - Past Medical History Past Medical History (Chronic Problems): Chronic Problems (Last Reviewed 07/28/19 @ 13:14 by Temi Gutierrez) Chronic kidney disease (CKD) stage G5/A1, glomerular filtration rate (GFR) less than or equal to 15 mL/min/1.73 square meter and albuminuria creatinine ratio less than 30 mg/g (Chronic) Type I diabetes mellitus, uncontrolled (Chronic) Obesity (Chronic) HLD (hyperlipidemia) (Chronic) CAD (coronary artery disease) (Chronic) Benign hypertension (Chronic) Agitated depression (Chronic) - Past Surgical History Surgical History: appendectomy, cholecystectomy, hysterectomy, dilatation and curettage - Social History Smoking Status: Never smoker Review of Systems Eyes: Reports: - - ros negative unless noted in the HPI Patient Problems: Active and Suspected Problems (Last Reviewed 07/28/19 @ 13:14 by Temi Gutierrez) NSTEMI (non-ST elevated myocardial infarction) (Acute) PAF (paroxysmal atrial fibrillation) (Acute) - Physical Exam Vitals/I&O's: Vital Signs Temp Pulse Resp BP Pulse Ox 98.6 F 82 18 177/71 H 96 06/07/20 11:18 06/07/20 11:18 06/07/20 11:18 06/07/20 11:18 06/07/20 11:18 Oxygen Flow Rate (L/min) 2 Oxygen Delivery Method Nasal Cannula Weight: 98.8 kg Body Mass Index (BMI) 35.2 Finger Stick Blood Glucose 289 General: Alert, Cooperative HEENT: Atraumatic Neck: Supple Lungs: Clear to auscultation, Normal air movement Cardiovascular: Regular rate, Regular Rhythm Abdomen: Bowel Sounds Present, Soft, Non Tender Laboratory Results 06/07/20 08:50: WBC 3.4 L, RBC 2.28 L, Hgb 7.3 L, Hct 21.4 L, MCV 93.9, MCH 32.0, MCHC 34.1, RDW Std Deviation 46.5 H, RDW Coeff of [place] 13.9, Plt Count 226, MPV 10.1, Immature Gran % (Auto) 0.900, Neut % (Auto) 68.1, Lymph % (Auto) 19.5, [place] % (Auto) 9.7, Eos % (Auto) 0.9, Baso % (Auto) 0.9, Absolute Neuts (auto) 2.3, Absolute Lymphs (auto) 0.66 L, Nucleated RBC % 0 06/07/20 08:50: PT 13.8, INR 1.1, APTT 30.1 06/07/20 08:50: Sodium 136, Potassium 3.6, Chloride 96 L, Carbon Dioxide 28.0, Anion Gap 12, BUN 38 H, Creatinine 6.67 H, Estim Creat Clear Calc 9.13, Est GFR (MDRD) Af Amer 8 L, Est GFR (MDRD) Non-Af 7 L, BUN/Creatinine Ratio 5.7 L, Glucose 126 H, Calcium 8.8, Total Bilirubin 0.40, AST 17, ALT 12 L, Alkaline Phosphatase 134 H, Troponin I 0.405 H, Total Protein 6.8, Albumin 3.3, Globulin 3.5, Albumin/Globulin Ratio 0.9, TSH 5.02 H 06/07/20 08:50: B-Natriuretic Peptide 2454.5 H 06/07/20 11:48: Troponin I Pending Current Medications Acetaminophen (Acetaminophen 325 Mg Tablet) 650 mg PO Q6H PRN PRN PRN Reason: Pain Score 1-10/Temp > 100.7 F Al Hydroxide/Mg Hydroxide (Mag Hydrox/Al Hydrox/Simeth 30 Ml Udc) 30 ml PO Q6H PRN PRN PRN Reason: Gastric Burning Albuterol Sulfate (Albuterol 2.5 Mg/3 Ml Vial.Neb.) 2.5 mg INHALATION Q2H PRN PRN PRN Reason: SOB/Wheezing Amlodipine Besylate (Amlodipine 10 Mg Tablet) 10 mg PO DAILY [facility] Last Admin: 06/07/20 11:21 Dose: 10 mg Documented by: Aspirin (Aspirin E.C. 81 Mg Tablet) 81 mg PO DAILY@0800 [facility] Atorvastatin Calcium (Atorvastatin Calcium 80 Mg Tablet) 80 mg PO QHS [facility] Carvedilol (Carvedilol 12.5 Mg Tablet) 25 mg PO BID [facility] Last Admin: 06/07/20 11:21 Dose: 25 mg Documented by: Ferrous Sulfate (Ferrous Sulfate 325 Mg Tablet) 325 mg PO DAILY@1200 [facility] Hydralazine HCl (Hydralazine 50 Mg Tablet) 100 mg PO TID [facility] Insulin Glargine (Insulin Glargine 100 Units/Ml Pen) 16 units SC QHS [facility] Insulin Human Lispro (Insulin Lispro 100 Unit/Ml Insuln.Pen) 10 unit SC 0800,1200,1700 [facility] Insulin Human Lispro (Insulin Lispro 100 Unit/Ml Insuln.Pen) 0 unit SC TIDAC [facility]; Protocol Last Admin: 06/07/20 11:22 Dose: Not Given Documented by: Levothyroxine Sodium (Levothyroxine 112 Mcg Tablet) 112 mcg PO DAILY@0600 [facility] Melatonin (Melatonin 3 Mg Tablet) 3 mg PO QHS PRN PRN PRN Reason: INSOMNIA Metoclopramide HCl (Metoclopramide 10 Mg Tablet) 10 mg PO Q6H PRN PRN Reason: NAUSEA Morphine Sulfate (Morphine 2 Mg/Ml Syringe) 2 mg IV Q3H PRN PRN PRN Reason: Pain Score 6-10 Multivitamins (Multivitamins,Therapeutic Tablet) [facility] Nitroglycerin (Nitroglycerin (Inpatient Use) 0.4 Mg Tab.Subl) 0.4 mg SUBLINGUAL Q5M PRN PRN Reason: CARDIAC/CHEST PAIN Pantoprazole Sodium (Pantoprazole Sodium 20 Mg Tablet) 20 mg PO DAILY [facility] Last Admin: 06/07/20 11:21 Dose: 20 mg Documented by: Promethazine HCl (Promethazine 25 Mg Tablet) 12.5 mg PO Q6H PRN PRN Reason: NAUSEA Last Admin: 06/07/20 10:48 Dose: 12.5 mg Documented by: Sodium Chloride (0.9% Saline Lock 10 Ml Syringe) 10 - 40 ml IV UD PRN PRN Reason: SALINE FLUSH Last Admin: 06/07/20 09:57 Dose: 20 ml Documented by: Assessment/Plan All Active Problems (Last Reviewed 07/28/19 @ 13:14 by Temi Gutierrez) NSTEMI (non-ST elevated myocardial infarction) (Acute) PAF (paroxysmal atrial fibrillation) (Acute) DKA (diabetic ketoacidoses) (Resolved) Problem with vascular access (Resolved) ESRD mwf HD 3.5 hours HD per patient request Anemia start DEBO if prolonged CKD MBD monitor ca phos binders prn Elevated troponin/misc per primary d/w patient thanks for consult.
[2020-06-07 12:30] LABS: Bedside Glucose 124 mg/dL (70-110)
[2020-06-07] MEDS: Ferrous Sulfate 325 MG Tablet PO (13:07)
[2020-06-07] MEDS: Insulin Lispro 100 UNIT/ML INSULN.PEN 10 UNIT SC ×2 (13:07→16:25)
[2020-06-07] MEDS: hydrALAZINE 50 MG Tablet 100 MG PO ×2 (13:09→21:29)
[2020-06-07 13:16] LABS: Bedside Glucose 106 mg/dL (70-110)
--- NOTE | 2020-06-07 13:57 | NURSING ---
RN CM Assessment Called patient bedside phone and cell phone with no answer. Called patient Dtr Rosemary Orr on cell phone [phone]. Introduced role of RN CM to patient Dtr Rosemary and agrees to RNCM assessment.? Care providers, pharmacy, and demographics verified. Admit Dx: NSTEMI Re-Admit: No Barriers/Issues: None. Patient gets HD at [facility] M/W/F, start time: 944. Cardiac cath at [place] per H&P. PCP: Angelia Olson Specialists: Nephro- Dr Nieto in [place]. Cardio- in [place]. Supposed to see Endocrin in [place]. [facility] Preferred Pharmacy: [facility] Insurance: [employer] A/B, [facility] Rx Benefit:?Yes LNOK: Mother Virgie Gutierrez LW/HPOA: None. Aware can complete as an outpatient with social media job titles department Living Arrangements:?Lives with Dtr and her kids ADL?s: Has been using a cane sometimes lately. Independent with ADLs Transportation: Patient drives. Dtr Rosemary to transport upon hospital DC. DME: Glucometer, Cane, walker, WC, Shower Chair HHC: Past SNF: Past at [facility] in [facility] rehab in [place] Goal: Home. Dtr has not been updated on what is going on with patient. Does not think will have any issues, concerns, or questions regarding DC planning at this time. DC PLAN: Home. Patient was previously on MINA Schumacher to follow for any changes in anticoagulation. No further anticipated needs identified at this time. MINA Martin
--- NOTE | 2020-06-07 16:16 | PCM.CONS.C ---
Problem List (1) Atrial fibrillation/flutter Status: Acute (2) NSTEMI (non-ST elevated myocardial infarction) Status: Acute (3) CAD (coronary artery disease) Status: Chronic (4) S/P CABG (coronary artery bypass graft) Status: Chronic (5) HLD (hyperlipidemia) Status: Chronic (6) Benign hypertension Status: Chronic (7) Type I diabetes mellitus, uncontrolled Status: Chronic (8) Chronic kidney disease (CKD) stage G5/A1, glomerular filtration rate (GFR) less than or equal to 15 mL/min/1.73 square meter and albuminuria creatinine ratio less than 30 mg/g Status: Chronic (9) Hemodialysis patient Status: Chronic (10) Anemia Status: Chronic Reason for Consult Date of Consultation: 06/07/20 History of Present Illness: The patient is a 54 year old white female with a past medical history of hyperlipidemia, hypertension, diabetes mellitus, end-stage renal disease, on chronic hemodialysis, with premature CAD, status post CABG (2013), paroxysmal atrial fibrillation/flutter, who is referred for further evaluation of recurrent paroxysmal atrial fibrillation/flutter as well as a non-ST segment elevation [place]. The patient states that she has been evaluated and cared for by cardiology based out of [facility] in [place], [place]. It appears based upon medical records received thus far that she underwent diagnostic cardiac catheterization in May 2014 at that center and was found to have multivessel CAD and recommended for CABG. The CABG report is unavailable for review at this time. She believes she has had a post CABG cardiac catheterization and was told that 2 of 4 grafts had already blocked. She presented to her local emergency department earlier this day based upon concerns of palpitation, chest discomfort, and concerns of nausea/emesis. It appears that she was felt to have recurrence of her atrial flutter. She was treated medically. She had resolution to sinus rhythm. She was released home but then returned back shortly thereafter based upon ongoing concerns of chest discomfort and nausea and emesis. She was found to have abnormal high-sensitivity troponin I levels. Her ECG demonstrated sinus rhythm with no acute ECG changes. She was asked to be transferred to [facility] in [place], [place] where she has received her cardiovascular care. That hospital was unable to accept her at the time based upon inpatient bed availability. She was then transferred to [facility] for further evaluation and care. She states at the moment she is resting comfortably. She does not recall any acute respiratory related symptoms or changes. She has had no ongoing peripheral pitting edema. She denies any loss of consciousness. She has had repeat troponin I levels here. They have been indeterminant and decreasing. Her ECG demonstrated sinus rhythm with concerns of LVH with no acute changes. She has been evaluated by nephrology. She receives hemodialysis on a Hvzops-[id number]-[id number] basis. Apparently based upon her renal insufficiency she is chronically anemic. [] Past Medical History Allergies/Adverse Reactions: Allergies rosiglitazone [From Avandia] Allergy (Mild, Verified 06/07/20 08:08) Hives epoetin lazaro [From Procrit] Allergy (Verified 06/07/20 08:08) Hives Sulfa (Sulfonamide Antibiotics) Allergy (Verified 06/07/20 08:08) Hives metoprolol [From Lopressor] Adverse Reaction (Verified 06/07/20 08:08) Nausea/Vom/Diarrhea tramadol [From Ultram] Adverse Reaction (Verified 06/07/20 08:08) Nausea/Vom/Diarrhea Home Medications: Ambulatory Orders Medication Instructions Recorded Aspirin E.C. [Ecotrin] 81 mg PO DAILY@0800 02/10/16 Carvedilol [Coreg (Beta Sully)] 25 mg PO BID 02/10/16 Cholecalciferol (Vitamin D3) 5,000 unit PO DAILY 02/10/16 [Vitamin D3] Levothyroxine [Synthroid] 112 mcg PO DAILY 02/10/16 Multivitamins,Therapeutic 1 tab PO DAILY 02/10/16 [Multivitamin] apixaban 2.5 mg tablet 2.5 mg PO BID 10/29/18 ferrous sulfate 325 mg (65 mg 325 mg PO DAILY tab 10/29/18 iron) tablet hydralazine 50 mg tablet 100 mg PO TID tab 10/29/18 insulin glargine U-300 conc 300 16 unit SC QHS 10/29/18 unit/mL (1.5 mL) subcutaneous pen metoclopramide HCl 10 mg tablet 10 mg PO Q6H PRN 10/29/18 promethazine 12.5 mg tablet 12.5 mg PO Q6H PRN 10/29/18 Amlodipine Besylate [Norvasc] 10 mg PO DAILY 12/11/18 Insulin Lispro [Admelog] 10 unit SQ TID 12/11/18 omeprazole 20 mg capsule,delayed 20 mg PO DAILY 07/28/19 release Past Medical History (Chronic Problems): Chronic Problems (Last Reviewed 07/28/19 @ 13:14 by Temi Gutierrez) S/P CABG (coronary artery bypass graft) (Chronic) Hemodialysis patient (Chronic) Anemia (Chronic) Chronic kidney disease (CKD) stage G5/A1, glomerular filtration rate (GFR) less than or equal to 15 mL/min/1.73 square meter and albuminuria creatinine ratio less than 30 mg/g (Chronic) Type I diabetes mellitus, uncontrolled (Chronic) Obesity (Chronic) HLD (hyperlipidemia) (Chronic) CAD (coronary artery disease) (Chronic) Benign hypertension (Chronic) Agitated depression (Chronic) Surgical History: appendectomy, cholecystectomy, hysterectomy, dilatation and curettage Smoking Status: Never smoker Alcohol: None Drugs: None Review of Systems - Review of Systems General: Denies: Fever, Night Sweats, Fatigue Cardiovascular: Reports: Chest Discomfort, Chest Discomfort at Rest, Palpitations. Denies: Shortness of Breath, Orthopnea, PND, Peripheral Edema, Lightheadedness, Dizziness, Near Syncope, Syncope Respiratory: Denies: Cough, Sputum Production, Hemoptysis Gastrointestinal: Denies: Hematemesis, Hematochezia, Melena Genitourinary: Denies: Dysuria, Hematuria Skin: Denies: Rash Subjectve: This is a 54-year-old white female who appears to be resting comfortably at the moment in no acute distress. Objective: Vital Signs Temp Pulse Resp BP Pulse Ox 98.3 F 67 18 164/62 H 99 06/07/20 13:09 06/07/20 15:00 06/07/20 13:09 06/07/20 13:09 06/07/20 13:09 Oxygen Flow Rate (L/min) 2 Oxygen Delivery Method Nasal Cannula Weight: 217 lb 13.067 oz Body Mass Index (BMI) 35.2 Finger Stick Blood Glucose 289 Intake and Output for Last 24 Hours 06/05/20 06/06/20 06/07/20 23:59 23:59 23:59 Intake Total 240 / 240 Balance 240 / 240 General: Awake, Alert, Oriented x 3, Cooperative, No Acute Distress, Obese HEENT: Atraumatic, Normocephalic, PERRL, EOMI, Sclera Non Icteric Neck: Supple, Good ROM, No JVD Lungs: Clear to auscultation Cardiovascular: Regular Rhythm, Normal S1, Normal S2 Murmur Murmur: Grade 2/6, Mid Systolic, LLSB, LVOT Vascular: No Carotid Bruits, - - Right forearm: Positive bruit: Positive thrill-at the site of the AV fistula Abdomen: Bowel Sounds Present, Soft Extremities: No edema Neurological: No Focal Motor or Sensory Deficit Psych/Mental Status: Flat Affect 06/07/20 08:50: WBC 3.4 L, RBC 2.28 L, Hgb 7.3 L, Hct 21.4 L, MCV 93.9, MCH 32.0, MCHC 34.1, Plt Count 226, MPV 10.1, Immature Gran % (Auto) 0.900, Neut % (Auto) 68.1, Lymph % (Auto) 19.5, [place] % (Auto) 9.7, Eos % (Auto) 0.9, Baso % (Auto) 0.9, Absolute Neuts (auto) 2.3, Nucleated RBC % 0 06/07/20 08:50: PT 13.8, INR 1.1, APTT 30.1 06/07/20 08:50: Sodium 136, Potassium 3.6, Chloride 96 L, Carbon Dioxide 28.0, Anion Gap 12, BUN 38 H, Creatinine 6.67 H, Est GFR (MDRD) Af Amer 8 L, Est GFR (MDRD) Non-Af 7 L, BUN/Creatinine Ratio 5.7 L, Glucose 126 H, Calcium 8.8, Total Bilirubin 0.40, Troponin I 0.405 H 06/07/20 08:50: B-Natriuretic Peptide 2454.5 H 06/07/20 11:48: Troponin I 0.391 H 06/07/20 14:35: Troponin I 0.333 H Rhythm: Sinus rhythm EKG: As noted above Assessment/Plan 1. Paroxysmal atrial fibrillation/flutter The patient has had recurrence of her paroxysmal atrial fibrillation/flutter. She has been on medical therapy for this which apparently is included rate control therapy and anticoagulant therapy. At the present time she is in sinus rhythm. She will continue medical management with adjustment as needed based upon her other diagnosis and need for further evaluation and care. 2. Non-ST segment elevation AL The patient does have findings compatible with a non-ST segment elevation AL. It is unclear whether this was a type I event that triggered her symptoms and findings versus a type II event brought out by her recurrent atrial dysrhythmia superimposed upon concerns of anemia, etc. At the moment she appears to be symptomatically stable. Her cardiac enzymes are decreasing. Her ECG is demonstrated no acute ECG changes. She will continue medical management. It was felt based upon the patient's symptoms and her objective findings superimposed upon her history of CAD and previous CABG that she be considered for repeat diagnostic cardiac catheterization. The procedure and risks of been discussed with her and she is agreeable to this approach. 3. CAD status post CABG The patient does have a history of premature CAD and has undergone CABG. She is undergoing evaluation care as noted. She is continuing medical management. She is being considered for repeat diagnostic cardiac catheterization to reassess her [place] vessel and graft vessel status for the need for continued medical therapy versus additional revascularization therapy. 4. Hyperlipidemia She will continue medical management. 5. Hypertension Her blood pressure will be followed and her medicines can be adjusted as needed. 6. Diabetes mellitus She will continue evaluation care per internal medicine. 7. Chronic renal insufficiency on chronic hemodialysis She has been evaluated by nephrology. She will continue with hemodialysis. 8. Anemia This may be secondary to her chronic renal insufficiency. However it would not be unreasonable to attempt to increase her hemoglobin level especially in light of her acute cardiovascular event and need for additional invasive studies such as diagnostic cardiac catheterization. Thus additional evaluation and care with PRBCs may be reasonable at this time. Comment: The patient's case has been discussed and reviewed with the patient and Dr. Alcala. Thank you for allowing me to participate in the care of your patient. Please don't hesitate to call if any issues arise. This note was generated using a voice recognition system and there may be incorrect words, spelling or punctuation that were not noted when reviewing the office note prior to saving. Procedure Criteria Procedure Type: Elective COVID Risk Discussion: The surgeon/proceduralist and patient have discussed in detail the risk of exposure to and/or potential harm posed by the COVID-19 virus with having a surgery/procedure at this time versus the risk of delaying the surgery/procedure. It is not possible to know either the risk of delaying the surgery or procedure or chance of getting an infection with perfect accuracy, but a joint decision was made between the patient and the surgeon/proceduralist to proceed at this time with the scheduled surgery/procedure as indicated on the consent form.
[2020-06-07] MEDS: Clopidogrel Bisulfate 300 MG Tablet PO (16:25)
[2020-06-07 16:55] LABS: Bedside Glucose 131 mg/dL (70-110)
[2020-06-07] MEDS: Atorvastatin Calcium 80 MG Tablet PO (21:30)
[2020-06-07 22:21] LABS: Bedside Glucose 379 mg/dL (70-110)
[2020-06-08] VITALS (16 sets, daily range): BP systolic 131–181; BP diastolic 54–98; PULSE 61–69; RESP 16–20; TEMP 36.2–37.1; O2SAT 93–100
--- NOTE | 2020-06-08 05:55 | ECHOD_ITS ---
Reason For Study: ATRIAL FIB-FLUTTER Procedure This was a 2D Doppler, Color Flow transthoracic echocardiogram. The exam was of adequate technical quality. Exam performed portable in patient room. Left Ventricle Normal LV size. Left ventricular systolic function is normal. The estimated ejection fraction is 65 %. There is evidence of diastolic dysfunction. No regional wall motion abnormalities noted. Right Ventricle Normal RV size. Normal systolic function. Atria The left atrium is moderately enlarged. The right atrium is mildly enlarged. No doppler evidence for ASD. Mitral Valve There is moderate mitral annular calcification. Extension of the mitral annular calcification onto the posterior mitral valve leaflet. Mild (1+) mitral valve insufficiency. Tricuspid Valve Normal tricuspid valve. Moderate (2+) tricuspid valve insufficiency. Right ventricular systolic pressure estimated to be 42 mmHg. Aortic Valve Trisinus/trileaflet aortic valve. Normal aortic valve. Pulmonic Valve Normal pulmonic valve. Trivial pulmonic valve insufficiency. Great Vessels Normal sized aortic root. Pericardium/Pleural No pericardial effusion. MMode/2D Measurements & Calculations LVIDd: 5.0 cm IVSd: 1.1 cm Ao root diam: 3.1 cm LVIDs: 3.3 cm LVPWd: 1.1 cm RVDd: 3.9 cm FS: 33.7 % LAV(MOD-bp): 94.0 ml LVAd ap4: 36.6 cm2 SV(MOD-sp4): 87.7 ml LAV(MOD-bp) Indexed: 45.4 ml/m2 EDV(MOD-sp4): 129.9 ml LAV(MOD-sp2): 102.8 ml EDV(sp4-el): 135.2 ml LAV(MOD-sp4): 83.2 ml LVAs ap4: 18.8 cm2 ESV(MOD-sp4): 42.2 ml ESV(sp4-el): 44.1 ml EF(MOD-sp4): 67.5 % EF(sp4-el): 67.4 % SV(sp4-el): 91.1 ml LA A4 area: 25.2 cm2 LA dimension(2D): 5.1 cm RA A4 area: 21.7 cm2 Time Measurements MV dec time: 0.29 sec Doppler Measurements & Calculations MV E max malvin: 150.5 cm/sec Lat Peak E' Malvin: 8.4 cm/sec Med Peak E' Malvin: 6.6 cm/sec MV A max malvin: 90.2 cm/sec E/E' lat: 17.9 E/E' med: 22.9 MV E/A: 1.7 Ao V2 max: 168.0 cm/sec LV V1 max: 149.8 cm/sec PA V2 max: 116.6 cm/sec Ao max P.3 mmHg LV V1 max P.0 mmHg PI end-d malvin: 115.6 cm/sec TR max malvin: 311.8 cm/sec TR max P.9 mmHg Interpretation Summary Left ventricular systolic function is normal. The estimated ejection fraction is 65 %. The left atrium is moderately enlarged. The right atrium is mildly enlarged. There is moderate mitral annular calcification. Extension of the mitral annular calcification onto the posterior mitral valve leaflet. Mild (1+) mitral valve insufficiency. Moderate (2+) tricuspid valve insufficiency. Trivial pulmonic valve insufficiency. Right ventricular systolic pressure estimated to be 42 mmHg. There is evidence of diastolic dysfunction. Ordering Physician: Bre Alcala Referring Physician: Shai Eddy Performed By: Debbie Bob RDCS
--- NOTE | 2020-06-08 05:55 | EKG12_ITS ---
Test Reason : Blood Pressure : / mmHG Vent. Rate : 063 BPM Atrial Rate : 025 BPM P-R Int : 000 ms QRS Dur : 098 ms QT Int : 446 ms P-R-T Axes : 000 -04 089 degrees QTc Int : 456 ms Somatic/Motion Artifact Sinus Rhythm Nonspecific ST and T wave abnormality Abnormal ECG Confirmed by JU AGUILERA, SHAI ([id number]), commissioning editor IHSAN MORALES ([id number]) on 06/15/2020 1:14:50 PM Referred By: Shai Eddy Confirmed By:SHAI DODD MD
[2020-06-08] MEDS: 0.9% Normal Saline 1,000 ML 15 ML IV (06:19)
[2020-06-08] MEDS: amLODIPine 10 MG Tablet PO (06:20)
[2020-06-08] MEDS: Carvedilol 12.5 MG Tablet 25 MG PO ×2 (06:20→21:43)
[2020-06-08] MEDS: Aspirin E.C. 81 MG Tablet PO (06:20)
[2020-06-08] MEDS: Levothyroxine 112 MCG Tablet PO (06:20)
[2020-06-08] MEDS: Clopidogrel Bisulfate 75 MG Tablet PO (06:20)
[2020-06-08] MEDS: hydrALAZINE 50 MG Tablet 100 MG PO ×2 (06:20→21:43)
[2020-06-08 06:40] LABS: Bedside Glucose 371 mg/dL (70-110)
[2020-06-08 07:05] LABS: Absolute Lymphocyte Count 0.82 X10^3/uL (0.83-4.51); Absolute Neutrophil Count 1.9 X10^3/uL (2.0-7.7); Basophil# 0.04 X10^3/uL; Basophil% 1.2 % (0-1); Eosinophil# 0.28 X10^3/uL; Eosinophils% 8.3 % (0-5); Hematocrit 22.3 % (37-47); Hemoglobin 7.4 g/dL (12.0-15.0); Lymphocyte # 0.82 X10^3/ul (4.0); Lymphocyte % 24.4 % (19-41); Mean Corp Hgb Conc 33.2 g/dL (32-36); Mean Corpuscular Hgb 32.5 pg (27.0-32.0); Mean Corpuscular Volume 97.8 fL (81-99); Mean Platelet Vol. 10.8 fl (6.2-12.0); Monocyte# 0.27 X10^3/uL; NRBC Flagged by Analyzer 0 % (0-5); Neutrophil # 1.88 X10^3/uL (2.7-7.7); Platelet Count 211 K/mm3 (150-450); RBC Distribution Width CV 14.1 % (11.6-14.6); RBC Distribution Width SD 48.7 fl (35.1-43.9); Red Blood Count 2.28 M/mm3 (4.2-5.4); White Blood Count 3.4 K/mm3 (4.4-11.0)
[2020-06-08 07:50] LABS: Anion Gap 12 (5-15); BUN 52 mg/dL (7-18); Calcium,Total 8.3 mg/dL (8.5-10.1); Chloride 95 mmol/L (98-107); Cholesterol 130 mg/dL (200); Creatinine, Serum 8.65 mg/dL (0.55-1.02); EST Glomerular Filtration Rate 5 mL/min (>60); Est Glom Filt Rate - Afr Amer 6 mL/min (>60); Estimated Creatinine Clearance 7.04 ml/min; Glucose 370 mg/dL (74-106); High Density Lipoprotein 51 mg/dL; Magnesium 2.1 mg/dL (1.6-2.6); Potassium 3.7 mmol/L (3.5-5.1); Sodium Level 134 mmol/L (136-145); Triglycerides 91 mg/dL; Very Low Density Lipoprotein 18 mg/dL (5-40)
--- NOTE | 2020-06-08 09:02 | CASEMGMT ---
KELSEY CHURCHILL NOTE: Call placed to [facility] in [place]. They were notified pt has been admitted to [facility]. Katerine LUNA RN CM
--- NOTE | 2020-06-08 09:04 | PCM.PN.CARD ---
Subjectve: The patient appears to be resting comfortably this morning in no acute distress. Objective: Vital Signs Temp Pulse Resp BP Pulse Ox 97.3 F L 61 20 H 153/77 H 100 06/08/20 06:11 06/08/20 07:00 06/08/20 06:11 06/08/20 06:20 06/08/20 06:11 Oxygen Flow Rate (L/min) 2 Oxygen Delivery Method Room Air Weight: 212 lb 15.465 oz Body Mass Index (BMI) 35.2 Finger Stick Blood Glucose 289 Intake and Output for Last 24 Hours 06/06/20 06/07/20 06/08/20 23:59 23:59 23:59 Intake Total 720 / 720 Output Total 0 / 0 0 / 0 Balance 720 / 720 General: Awake, Alert, Oriented x 3, Cooperative, No Acute Distress HEENT: Atraumatic, Normocephalic, PERRL, EOMI, Sclera Non Icteric Neck: Supple, Good ROM, No JVD Lungs: Clear to auscultation Cardiovascular: Regular Rhythm, Normal S1, Normal S2 Abdomen: Bowel Sounds Present, Soft Extremities: No edema Neurological: No Focal Motor or Sensory Deficit Psych/Mental Status: Flat Affect 06/07/20 08:50: PT 13.8, INR 1.1, APTT 30.1 06/07/20 08:50: Sodium 136, Potassium 3.6, Chloride 96 L, Carbon Dioxide 28.0, Anion Gap 12, BUN 38 H, Creatinine 6.67 H, Est GFR (MDRD) Af Amer 8 L, Est GFR (MDRD) Non-Af 7 L, BUN/Creatinine Ratio 5.7 L, Glucose 126 H, Calcium 8.8, Total Bilirubin 0.40, Troponin I 0.405 H 06/07/20 08:50: B-Natriuretic Peptide 2454.5 H 06/07/20 11:48: Troponin I 0.391 H 06/07/20 14:35: Troponin I 0.333 H 06/08/20 06:30: WBC 3.4 L, RBC 2.28 L, Hgb 7.4 L, Hct 22.3 L, MCV 97.8, MCH 32.5 H, MCHC 33.2, Plt Count 211, MPV 10.8, Immature Gran % (Auto) 2.100 H, Neut % (Auto) 56.0, Lymph % (Auto) 24.4, [place] % (Auto) 8.0, Eos % (Auto) 8.3 H, Baso % (Auto) 1.2 H, Absolute Neuts (auto) 1.9 L, Nucleated RBC % 0 06/08/20 06:30: Sodium 134 L, Potassium 3.7, Chloride 95 L, Carbon Dioxide 27.0, Anion Gap 12, BUN 52 H, Creatinine 8.65 H*, Est GFR (MDRD) Af Amer 6 L, Est GFR (MDRD) Non-Af 5 L, BUN/Creatinine Ratio 6.0 L, Glucose 370 H, Calcium 8.3 L, Phosphorus 6.0 H, Magnesium 2.1, Triglycerides 91, Cholesterol 130, LDL Cholesterol 61, VLDL Cholesterol 18, HDL Cholesterol 51 Rhythm: Sinus rhythm CT surgery: May,: [place], [place]: CARO to the LAD SVG to the diagonal SVG to the LCx system SVG to the PDA system Medical Necessity - Tobacco Use Smoking Status: Never smoker Assessment/Plan 1. Paroxysmal atrial fibrillation/flutter The patient has had recurrence of her paroxysmal atrial fibrillation/flutter. She has been on medical therapy for this which apparently is included rate control therapy and anticoagulant therapy. At the present time she is in sinus rhythm. She will continue medical management with adjustment as needed based upon her other diagnosis and need for further evaluation and care. 2. Non-ST segment elevation [place] The patient does have findings compatible with a non-ST segment elevation [place]. It is unclear whether this was a type I event that triggered her symptoms and findings versus a type II event brought out by her recurrent atrial dysrhythmia superimposed upon concerns of anemia, etc. At the moment she appears to be symptomatically stable. Her cardiac enzymes are decreasing. Her ECG is demonstrated no acute ECG changes. She will continue medical management. It was felt based upon the patient's symptoms and her objective findings superimposed upon her history of CAD and previous CABG that she be considered for repeat diagnostic cardiac catheterization. The procedure and risks of been discussed with her and she is agreeable to this approach. 3. CAD status post CABG The patient does have a history of premature CAD and has undergone CABG. She is undergoing evaluation care as noted. She is continuing medical management. She is being considered for repeat diagnostic cardiac catheterization to reassess her [place] vessel and graft vessel status for the need for continued medical therapy versus additional revascularization therapy. 4. Hyperlipidemia She will continue medical management. 5. Hypertension Her blood pressure will be followed and her medicines can be adjusted as needed. 6. Diabetes mellitus She will continue evaluation care per internal medicine. 7. Chronic renal insufficiency on chronic hemodialysis She has been evaluated by nephrology. She will continue with hemodialysis. 8. Anemia This may be secondary to her chronic renal insufficiency. The patient is going to receive PRBCs today in conjunction with hemodialysis to hopefully balance her volume status and avoid volume overload. Hopefully this will be beneficial with respect to her underlying cardiovascular concerns and in preparation for a future diagnostic cardiac catheterization procedure. Comment: At the present time, the patient will continue to be monitored, she will continue medical therapy, she will proceed with PRBC transfusions, and her anticoagulant therapy with apixaban is on temporary hold preparation for upcoming diagnostic cardiac catheterization. The tentative plan will be for upcoming diagnostic cardiac catheterization on 06-09-2020 after the patient has had the aforementioned PRBCs, hemodialysis, and time without her anticoagulant therapy. The patient's case has been discussed and reviewed with the patient and Dr. Alcala. Thank you for allowing me to participate in the care of your patient. Please don't hesitate to call if any issues arise. This note was generated using a voice recognition system and there may be incorrect words, spelling or punctuation that were not noted when reviewing the office note prior to saving.
[2020-06-08] MEDS: Insulin Lispro 100 UNIT/ML INSULN.PEN 10 UNIT SC ×2 (09:38→11:44)
[2020-06-08] MEDS: Pantoprazole Sodium 20 MG Tablet PO (09:39)
[2020-06-08] MEDS: Insulin Lispro 100 UNIT/ML INSULN.PEN SC ×2 (09:39→11:44)
[2020-06-08] MEDS: Multivitamins,Therapeutic Tablet 1 TABLET PO (09:39)
[2020-06-08] MEDS: 0.9% Saline Lock 10 ML Syringe IV (09:42)
[2020-06-08 09:50] LABS: Bedside Glucose 412 mg/dL (70-110)
--- NOTE | 2020-06-08 10:50 | PCM.PN.HOSP ---
Patient Problems: Active and Suspected Problems (Last Reviewed 07/28/19 @ 13:14 by Temi Gutierrez) NSTEMI (non-ST elevated myocardial infarction) (Acute) PAF (paroxysmal atrial fibrillation) (Acute) Atrial fibrillation/flutter (Acute) Subjective: No nausea. No issues overnight. Pt not very interactive. Discussed plan for cath tomorrow and transfusion. Pt agreeable. Vitals/I&O's: Vital Signs Temp Pulse Resp BP Pulse Ox 98.1 F 62 18 156/69 H 95 06/08/20 09:43 06/08/20 09:43 06/08/20 09:43 06/08/20 09:43 06/08/20 09:43 Oxygen Flow Rate (L/min) 2 Oxygen Delivery Method Room Air Weight: 96.6 kg Body Mass Index (BMI) 35.2 Finger Stick Blood Glucose 289 Intake and Output for Last 24 Hours 06/06/20 06/07/20 06/08/20 23:59 23:59 23:59 Intake Total 720 / 720 15 Output Total 0 / 0 0 / 0 Balance 720 / 720 General: Alert, Oriented x3, Cooperative, No apparent distress, Well developed, Well nourished, - - Younger WF lying in bed HEENT: Atraumatic, Normocephalic Lungs: Clear to auscultation, Normal air movement, No rhonchi, No wheeze, No rales Cardiovascular: Regular rate, Regular Rhythm, Normal S1, Normal S2, No Ectopic Activity, Murmur, No rub noted, No Gallop Abdomen: Bowel Sounds Present, Soft, Non Tender, Non-Distended, No Hepato-splenomegaly Extremities: No clubbing, No cyanosis, No edema, Capillary Refill Less than 3 Seconds, Peripheral Pulses Normal Neurological: Cranial nerves II-XII grossly intact, Neuro grossly intact Psych/Mental Status: Appropriate, Flat Affect Laboratory Results 06/07/20 09:55: POC Glucose 124 H 06/07/20 11:48: Troponin I 0.391 H 06/07/20 13:05: POC Glucose 106 06/07/20 14:35: Troponin I 0.333 H 06/07/20 16:24: POC Glucose 131 H 06/07/20 21:22: POC Glucose 379 H 06/08/20 06:24: POC Glucose 371 H 06/08/20 06:30: WBC 3.4 L, RBC 2.28 L, Hgb 7.4 L, Hct 22.3 L, MCV 97.8, MCH 32.5 H, MCHC 33.2, RDW Std Deviation 48.7 H, RDW Coeff of [place] 14.1, Plt Count 211, MPV 10.8, Immature Gran % (Auto) 2.100 H, Neut % (Auto) 56.0, Lymph % (Auto) 24.4, [place] % (Auto) 8.0, Eos % (Auto) 8.3 H, Baso % (Auto) 1.2 H, Absolute Neuts (auto) 1.9 L, Absolute Lymphs (auto) 0.82 L, Nucleated RBC % 0 06/08/20 06:30: Sodium 134 L, Potassium 3.7, Chloride 95 L, Carbon Dioxide 27.0, Anion Gap 12, BUN 52 H, Creatinine 8.65 H*, Estim Creat Clear Calc 7.04, Est GFR (MDRD) Af Amer 6 L, Est GFR (MDRD) Non-Af 5 L, BUN/Creatinine Ratio 6.0 L, Glucose 370 H, Calcium 8.3 L, Phosphorus 6.0 H, Magnesium 2.1, Triglycerides 91, Cholesterol 130, LDL Cholesterol 61, VLDL Cholesterol 18, HDL Cholesterol 51 06/08/20 06:30: Hemoglobin A1c Pending 06/08/20 09:05: Blood Type Pending, Antibody Screen Pending, Crossmatch See Detail 06/08/20 09:37: POC Glucose 412 H Current Medications Acetaminophen (Acetaminophen 325 Mg Tablet) 650 mg PO Q6H PRN PRN PRN Reason: Pain Score 1-10/Temp > 100.7 F Al Hydroxide/Mg Hydroxide (Mag Hydrox/Al Hydrox/Simeth 30 Ml Udc) 30 ml PO Q6H PRN PRN PRN Reason: Gastric Burning Albuterol Sulfate (Albuterol 2.5 Mg/3 Ml Vial.Neb.) 2.5 mg INHALATION Q2H PRN PRN PRN Reason: SOB/Wheezing Amlodipine Besylate (Amlodipine 10 Mg Tablet) 10 mg PO DAILY [facility] Last Admin: 06/08/20 06:20 Dose: 10 mg Documented by: Aspirin (Aspirin E.C. 81 Mg Tablet) 81 mg PO DAILY@0800 [facility] Last Admin: 06/08/20 06:20 Dose: 81 mg Documented by: Atorvastatin Calcium (Atorvastatin Calcium 80 Mg Tablet) 80 mg PO QHS [facility] Last Admin: 06/07/20 21:30 Dose: 80 mg Documented by: Carvedilol (Carvedilol 12.5 Mg Tablet) 25 mg PO BID [facility] Last Admin: 06/08/20 06:20 Dose: 25 mg Documented by: Clopidogrel Bisulfate (Clopidogrel Bisulfate 75 Mg Tablet) 75 mg PO DAILY [facility] Last Admin: 06/08/20 06:20 Dose: 75 mg Documented by: Ferrous Sulfate (Ferrous Sulfate 325 Mg Tablet) 325 mg PO DAILY@1200 [facility] Last Admin: 06/07/20 13:07 Dose: 325 mg Documented by: Hydralazine HCl (Hydralazine 50 Mg Tablet) 100 mg PO TID [facility] Last Admin: 06/08/20 06:20 Dose: 100 mg Documented by: Sodium Chloride () 1,000 mls @ 15 mls/hr IV .Q48H [facility] Last Infusion: 06/08/20 06:19 Dose: 0 mls/hr Documented by: Insulin Glargine (Insulin Glargine 100 Units/Ml Pen) 16 units SC QHS [facility] Last Admin: 06/07/20 21:30 Dose: 16 units Documented by: Insulin Human Lispro (Insulin Lispro 100 Unit/Ml Insuln.Pen) 10 unit SC 0800,1200,1700 [facility] Last Admin: 06/08/20 09:38 Dose: 10 units Documented by: Insulin Human Lispro (Insulin Lispro 100 Unit/Ml Insuln.Pen) 0 unit SC TIDAC [facility]; Protocol Last Admin: 06/08/20 09:39 Dose: 5 units Documented by: Levothyroxine Sodium (Levothyroxine 112 Mcg Tablet) 112 mcg PO DAILY@0600 [facility] Last Admin: 06/08/20 06:20 Dose: 112 mcg Documented by: Melatonin (Melatonin 3 Mg Tablet) 3 mg PO QHS PRN PRN PRN Reason: INSOMNIA Metoclopramide HCl (Metoclopramide 10 Mg Tablet) 10 mg PO Q6H PRN PRN Reason: NAUSEA Morphine Sulfate (Morphine 2 Mg/Ml Syringe) 2 mg IV Q3H PRN PRN PRN Reason: Pain Score 6-10 Multivitamins ([facility]it[facility],Therapeutic Tablet) [facility] Admin: 06/08/20 09:39 Dose: 1 tablet Documented by: Nitroglycerin (Nitroglycerin (Inpatient Use) 0.4 Mg Tab.Subl) 0.4 mg SUBLINGUAL Q5M PRN PRN Reason: CARDIAC/CHEST PAIN Pantoprazole Sodium (Pantoprazole Sodium 20 Mg Tablet) 20 mg PO DAILY [facility] Last Admin: 06/08/20 09:39 Dose: 20 mg Documented by: Promethazine HCl (Promethazine 25 Mg Tablet) 12.5 mg PO Q6H PRN PRN Reason: NAUSEA Last Admin: 06/07/20 10:48 Dose: 12.5 mg Documented by: Sodium Chloride (0.9% Saline Lock 10 Ml Syringe) 10 - 40 ml IV UD PRN PRN Reason: SALINE FLUSH Last Admin: 06/08/20 09:42 Dose: 30 ml Documented by: STROKE Vital Signs/Narrative: Vital Signs Temp Pulse Resp BP Pulse Ox 06/08/20 09:43 98.1 F 62 18 156/69 H 95 06/08/20 07:00 61 Medical Necessity - Tobacco Use Smoking Status: Never smoker Assessment/Plan All Active Problems (Last Reviewed 07/28/19 @ 13:14 by Temi Gutierrez) NSTEMI (non-ST elevated myocardial infarction) (Acute) PAF (paroxysmal atrial fibrillation) (Acute) Atrial fibrillation/flutter (Acute) DKA (diabetic ketoacidoses) (Resolved) Problem with vascular access (Resolved) -Fib with RVR with H/O PAF -remains in NSR today -continue Coreg -hold home Eliquis--> last dose was last pm at about 11:30 on 06/06 -for cath -cards following NSTEMI -troponin elevated but now trending down -EKG with no ST-T wave changes -last dose of Eliquis was 11:30 pm 06/06 -ASA 81 mg daily -continue home BB -statin -Cath in am CAD s/p CABG -see above ESRD on HD -HD MWF -consult Nephro Chronic Anemia 2/2 Renal Disease -continue Fe -monitor -will give 1 u per Cards request prior to cath tomorrow -hgb is stable Hypothyroidism -check TSH -continue Synthroid DM-1 -increase to lantus 30 u at HS -continue log 10 u TID with meals -SSI -cardiac/carb control diet -A1c pending -BGT GERD -PPI Gastroparesis continue home meds HTN/HPL -continue Coreg and Hydralazine -Statin RAGHAVENDRA -CPAP if pt is compliant DVT Prophylaxis -Heparin ggt for now Code Status -Full Inpatient E&M: 79681 Subs Hosp L2
--- NOTE | 2020-06-08 11:39 | NURSING ---
Humalog sliding scale insulin given at 0940 as unscheduled dose d/t patient's heart cath for today being cancelled.
[2020-06-08] MEDS: Ferrous Sulfate 325 MG Tablet PO (11:43)
[2020-06-08 11:55] LABS: Bedside Glucose 314 mg/dL (70-110)
--- NOTE | 2020-06-08 12:59 | PCM.PN.REN ---
Patient Problems: Active and Suspected Problems (Last Reviewed 07/28/19 @ 13:14 by Temi Gutierrez) NSTEMI (non-ST elevated myocardial infarction) (Acute) PAF (paroxysmal atrial fibrillation) (Acute) Atrial fibrillation/flutter (Acute) Subjective: no sob/cp no c/o today - Physical Exam Vitals/I&O's: Vital Signs Temp Pulse Resp BP Pulse Ox 98.1 F 62 18 156/69 H 95 06/08/20 09:43 06/08/20 09:43 06/08/20 09:43 06/08/20 09:43 06/08/20 09:43 Oxygen Flow Rate (L/min) 2 Oxygen Delivery Method Room Air Weight: 96.6 kg Body Mass Index (BMI) 35.2 Finger Stick Blood Glucose 289 Intake and Output for Last 24 Hours 06/06/20 06/07/20 06/08/20 23:59 23:59 23:59 Intake Total 720 / 720 255 / 255 Output Total 0 / 0 0 / 0 Balance 720 / 720 255 / 255 General: Alert, Cooperative HEENT: Atraumatic, Normocephalic Neck: Supple, Trachea Midline Lungs: Clear to auscultation, Normal air movement Cardiovascular: Regular rate, Regular Rhythm, Normal S1, Normal S2 Abdomen: Bowel Sounds Present, Soft, Obese Extremities: No edema Laboratory Results 06/07/20 13:05: POC Glucose 106 06/07/20 14:35: Troponin I 0.333 H 06/07/20 16:24: POC Glucose 131 H 06/07/20 21:22: POC Glucose 379 H 06/08/20 06:24: POC Glucose 371 H 06/08/20 06:30: WBC 3.4 L, RBC 2.28 L, Hgb 7.4 L, Hct 22.3 L, MCV 97.8, MCH 32.5 H, MCHC 33.2, RDW Std Deviation 48.7 H, RDW Coeff of [place] 14.1, Plt Count 211, MPV 10.8, Immature Gran % (Auto) 2.100 H, Neut % (Auto) 56.0, Lymph % (Auto) 24.4, [place] % (Auto) 8.0, Eos % (Auto) 8.3 H, Baso % (Auto) 1.2 H, Absolute Neuts (auto) 1.9 L, Absolute Lymphs (auto) 0.82 L, Nucleated RBC % 0 06/08/20 06:30: Sodium 134 L, Potassium 3.7, Chloride 95 L, Carbon Dioxide 27.0, Anion Gap 12, BUN 52 H, Creatinine 8.65 H*, Estim Creat Clear Calc 7.04, Est GFR (MDRD) Af Amer 6 L, Est GFR (MDRD) Non-Af 5 L, BUN/Creatinine Ratio 6.0 L, Glucose 370 H, Calcium 8.3 L, Phosphorus 6.0 H, Magnesium 2.1, Triglycerides 91, Cholesterol 130, LDL Cholesterol 61, VLDL Cholesterol 18, HDL Cholesterol 51 06/08/20 06:30: Hemoglobin A1c 10.0 H 06/08/20 09:05: Blood Type A NEGATIVE, Antibody Screen NEGATIVE, Crossmatch See Detail 06/08/20 09:37: POC Glucose 412 H 06/08/20 11:42: POC Glucose 314 H Current Medications Acetaminophen (Acetaminophen 325 Mg Tablet) 650 mg PO Q6H PRN PRN PRN Reason: Pain Score 1-10/Temp > 100.7 F Al Hydroxide/Mg Hydroxide (Mag Hydrox/Al Hydrox/Simeth 30 Ml Udc) 30 ml PO Q6H PRN PRN PRN Reason: Gastric Burning Albuterol Sulfate (Albuterol 2.5 Mg/3 Ml Vial.Neb.) 2.5 mg INHALATION Q2H PRN PRN PRN Reason: SOB/Wheezing Amlodipine Besylate (Amlodipine 10 Mg Tablet) 10 mg PO DAILY [facility] Last Admin: 06/08/20 06:20 Dose: 10 mg Documented by: Aspirin (Aspirin E.C. 81 Mg Tablet) 81 mg PO DAILY@0800 [facility] Last Admin: 06/08/20 06:20 Dose: 81 mg Documented by: Atorvastatin Calcium (Atorvastatin Calcium 80 Mg Tablet) 80 mg PO QHS [facility] Last Admin: 06/07/20 21:30 Dose: 80 mg Documented by: Carvedilol (Carvedilol 12.5 Mg Tablet) 25 mg PO BID [facility] Last Admin: 06/08/20 06:20 Dose: 25 mg Documented by: Clopidogrel Bisulfate (Clopidogrel Bisulfate 75 Mg Tablet) 75 mg PO DAILY [facility] Last Admin: 06/08/20 06:20 Dose: 75 mg Documented by: Ferrous Sulfate (Ferrous Sulfate 325 Mg Tablet) 325 mg PO DAILY@1200 [facility] Last Admin: 06/08/20 11:43 Dose: 325 mg Documented by: Hydralazine HCl (Hydralazine 50 Mg Tablet) 100 mg PO TID [facility] Last Admin: 06/08/20 06:20 Dose: 100 mg Documented by: Sodium Chloride () 1,000 mls @ 15 mls/hr IV .Q48H [facility] Last Infusion: 06/08/20 06:19 Dose: 0 mls/hr Documented by: Insulin Glargine (Insulin Glargine 100 Units/Ml Pen) 30 units SC QHS [facility] Insulin Human Lispro (Insulin Lispro 100 Unit/Ml Insuln.Pen) 10 unit SC 0800,1200,1700 [facility] Last Admin: 06/08/20 11:44 Dose: 10 units Documented by: Insulin Human Lispro (Insulin Lispro 100 Unit/Ml Insuln.Pen) 0 unit SC TIDAC [facility]; Protocol Last Admin: 06/08/20 11:44 Dose: 3 units Documented by: Levothyroxine Sodium (Levothyroxine 112 Mcg Tablet) 112 mcg PO DAILY@0600 [facility] Last Admin: 06/08/20 06:20 Dose: 112 mcg Documented by: Melatonin (Melatonin 3 Mg Tablet) 3 mg PO QHS PRN PRN PRN Reason: INSOMNIA Metoclopramide HCl (Metoclopramide 10 Mg Tablet) 10 mg PO Q6H PRN PRN Reason: NAUSEA Morphine Sulfate (Morphine 2 Mg/Ml Syringe) 2 mg IV Q3H PRN PRN PRN Reason: Pain Score 6-10 Multivit[facility] ([facility]t) [facility] Admin: 06/08/20 09:39 Dose: 1 tablet Documented by: Nitroglycerin (Nitroglycerin (Inpatient Use) 0.4 Mg Tab.Subl) 0.4 mg SUBLINGUAL Q5M PRN PRN Reason: CARDIAC/CHEST PAIN Pantoprazole Sodium (Pantoprazole Sodium 20 Mg Tablet) 20 mg PO DAILY [facility] Last Admin: 06/08/20 09:39 Dose: 20 mg Documented by: Promethazine HCl (Promethazine 25 Mg Tablet) 12.5 mg PO Q6H PRN PRN Reason: NAUSEA Last Admin: 06/07/20 10:48 Dose: 12.5 mg Documented by: Sodium Chloride (0.9% Saline Lock 10 Ml Syringe) 10 - 40 ml IV UD PRN PRN Reason: SALINE FLUSH Last Admin: 06/08/20 09:42 Dose: 30 ml Documented by: Medical Necessity - Tobacco Use Smoking Status: Never smoker Assessment/Plan All Active Problems (Last Reviewed 07/28/19 @ 13:14 by Temi Gutierrez) NSTEMI (non-ST elevated myocardial infarction) (Acute) PAF (paroxysmal atrial fibrillation) (Acute) Atrial fibrillation/flutter (Acute) DKA (diabetic ketoacidoses) (Resolved) Problem with vascular access (Resolved) ESRD mwf HD 3.5 hours HD per patient request. Dialysis today via avf UE Anemia start DEBO if prolonged stay CKD MBD monitor ca phos binders prn Elevated troponin for cardiac cath tomorrow/misc per primary discussed With the patient and Dr. Alcala
--- NOTE | 2020-06-08 15:40 | CPS ---
started by nursing
[2020-06-08 17:10] LABS: Bedside Glucose 138 mg/dL (70-110)
--- NOTE | 2020-06-08 19:54 | DIALYSIS ---
HD x3.5hrs completed at 1950 on a 2K bath, tolerated well, UF 2200mL, accessed via LFA AVF, worked well, received 1 unit PRBCs, tolerated well, no s/s of transfusion rxn, next tx planned for Saturday
[2020-06-08] MEDS: Atorvastatin Calcium 80 MG Tablet PO (21:44)
[2020-06-08 22:31] LABS: Bedside Glucose 302 mg/dL (70-110)
[2020-06-09] VITALS (23 sets, daily range): BP systolic 140–187; BP diastolic 60–74; PULSE 60–78; RESP 16–18; TEMP 36.3–36.9; O2SAT 90–99
--- NOTE | 2020-06-09 05:55 | EKG12_ITS ---
Test Reason : AM EKG Blood Pressure : / mmHG Vent. Rate : 071 BPM Atrial Rate : 071 BPM P-R Int : 144 ms QRS Dur : 100 ms QT Int : 444 ms P-R-T Axes : 074 -12 080 degrees QTc Int : 482 ms Normal sinus rhythm Left ventricular hypertrophy Nonspecific ST and T wave abnormality Prolonged QT Abnormal ECG Confirmed by JU AGUILERA, SHAI ([id number]), online content editor IHSAN MORALES ([id number]) on 06/15/2020 1:37:44 PM Referred By: Shai Eddy Confirmed By:SHAI DODD MD
[2020-06-09] MEDS: hydrALAZINE 50 MG Tablet 100 MG PO ×3 (06:00→23:03)
[2020-06-09] MEDS: Levothyroxine 112 MCG Tablet PO (06:00)
[2020-06-09] MEDS: amLODIPine 10 MG Tablet PO (06:01)
[2020-06-09] MEDS: Carvedilol 12.5 MG Tablet 25 MG PO ×2 (06:01→23:03)
[2020-06-09] MEDS: Aspirin E.C. 81 MG Tablet PO (06:01)
[2020-06-09] MEDS: Clopidogrel Bisulfate 75 MG Tablet PO (06:02)
[2020-06-09 06:10] LABS: Absolute Lymphocyte Count 0.66 X10^3/uL (0.83-4.51); Absolute Neutrophil Count 2.2 X10^3/uL (2.0-7.7); Basophil# 0.04 X10^3/uL; Basophil% 1.1 % (0-1); Eosinophil# 0.28 X10^3/uL; Hematocrit 26.9 % (37-47); Hemoglobin 8.9 g/dL (12.0-15.0); Lymphocyte # 0.66 X10^3/ul (4.0); Lymphocyte % 18.9 % (19-41); Mean Corp Hgb Conc 33.1 g/dL (32-36); Mean Corpuscular Hgb 31.7 pg (27.0-32.0); Mean Corpuscular Volume 95.7 fL (81-99); Mean Platelet Vol. 10.6 fl (6.2-12.0); Monocyte% 8.6 % (0-10); NRBC Flagged by Analyzer 0.6 % (0-5); Neutrophil # 2.18 X10^3/uL (2.7-7.7); Neutrophil % 62.3 % (47-70); Platelet Count 207 K/mm3 (150-450); RBC Distribution Width CV 14.1 % (11.6-14.6); RBC Distribution Width SD 47.5 fl (35.1-43.9); Red Blood Count 2.81 M/mm3 (4.2-5.4); White Blood Count 3.5 K/mm3 (4.4-11.0)
[2020-06-09 07:05] LABS: Bedside Glucose > 500 mg/dL (70-110)
[2020-06-09 07:05] LABS: Bedside Glucose > 500 mg/dL (70-110)
[2020-06-09 07:12] LABS: Anion Gap 12 (5-15); BUN 36 mg/dL (7-18); BUN/Creat Ratio 6.4 RATIO (10-20); Calcium,Total 7.5 mg/dL (8.5-10.1); Chloride 91 mmol/L (98-107); Creatinine, Serum 5.65 mg/dL (0.55-1.02); EST Glomerular Filtration Rate 8 mL/min (>60); Est Glom Filt Rate - Afr Amer 10 mL/min (>60); Estimated Creatinine Clearance 10.78 ml/min; Glucose 838 mg/dL (74-106); Potassium 4.1 mmol/L (3.5-5.1); Sodium Level 126 mmol/L (136-145); Thyroid Stim Hormone (TSH) 7.41 uIU/mL (0.358-3.74)
[2020-06-09] MEDS: Insulin Lispro 100 UNIT/ML INSULN.PEN 30 UNIT SC (07:36)
--- NOTE | 2020-06-09 10:04 | PN.CARD_ITS ---
Subjectve: The patient is status post diagnostic cardiac catheterization. She appears to be resting comfortably at the moment. Objective: Vital Signs Temp Pulse Resp BP Pulse Ox 98.2 F 71 16 187/71 H 92 06/09/20 05:50 06/09/20 07:00 06/09/20 05:50 06/09/20 05:50 06/09/20 05:50 Oxygen Flow Rate (L/min) 96 Oxygen Delivery Method Room Air Weight: 214 lb 15.211 oz Body Mass Index (BMI) 35.2 Finger Stick Blood Glucose 289 Intake and Output for Last 24 Hours 06/07/20 06/08/20 06/09/20 23:59 23:59 23:59 Intake Total 720 / 720 495 / 495 Output Total 0 / 0 2200 / 2200 Balance 720 / 720 -1705 / -1705 General: Awake, Alert, Oriented x 3, Cooperative, No Acute Distress HEENT: Atraumatic, Normocephalic, PERRL, EOMI, Sclera Non Icteric Neck: Supple, Good ROM, No JVD Lungs: Clear to auscultation Cardiovascular: Regular Rhythm, Normal S1, Normal S2 Vascular: Normal Femoral Pulses Abdomen: Bowel Sounds Present, Soft Extremities: No edema Neurological: No Focal Motor or Sensory Deficit Psych/Mental Status: Flat Affect 06/08/20 06:30: Hemoglobin A1c 10.0 H 06/09/20 06:00: WBC 3.5 L, RBC 2.81 L, Hgb 8.9 L, Hct 26.9 L, MCV 95.7, MCH 31.7, MCHC 33.1, Plt Count 207, MPV 10.6, Immature Gran % (Auto) 1.100 H, Neut % (Auto) 62.3, Lymph % (Auto) 18.9 L, [place] % (Auto) 8.6, Eos % (Auto) 8.0 H, Baso % (Auto) 1.1 H, Absolute Neuts (auto) 2.2, Nucleated RBC % 0.6 06/09/20 06:00: Sodium 126 L, Potassium 4.1, Chloride 91 L, Carbon Dioxide 23.0, Anion Gap 12, BUN 36 H, Creatinine 5.65 H, Est GFR (MDRD) Af Amer 10 L, Est GFR (MDRD) Non-Af 8 L, BUN/Creatinine Ratio 6.4 L, Glucose 838 H*, Calcium 7.5 L Rhythm: Sinus rhythm Cardiac Cath: CONCLUSIONS Elevated Left Ventricular End Diastolic Pressure (mild) [place] Multivessel CAD CARO to LAD: patent SVG to DX1: patent SVG to LCX: occluded SVG to RPDA: occluded RECOMMENDATIONS Risk factor modification Medical therapy DESCRIPTION OF PROCEDURE The patient arrived to the procedure lab. The risks and benefits of the procedure as well as a full description of our services here and current unavailability of surgical backup were fully explained to the patient and/or their significant other prior to the catheterization. The Timeout was completed, verifying the correct patient and procedure. The patient's procedural site was prepped and draped in the usual fashion. Local anesthetic was given subcuta neously to right groin region with Lidocaine 2%. Using a modified Seldinger technique, arterial access was obtained via the right femoral artery, a 4Fr sheath was inserted Left Coronary Artery selective angiography was performed in multiple views using a 4 Fr. JL5 catheter. Right Coronary Artery selective angiography was then performed in multiple views using a 4 Fr. 3DRC catheter. Saphenous Vein graft to the DIAG 1 selective angiography was performed in multiple views using a 4 Fr. 3DRC catheter. Saphenous Vein graft to the Circumflex selective angiography was performed in multiple views using a 4 Fr. JR4 catheter-occluded. Left internal mammary artery graft to the LAD selective angiography was performed in multiple views using a 4 Fr. IM catheter. Ascending (root) aorta selective angiography was then performed in single view. Ascending (root) aorta selective angiography was then performed in single view.The arterial sheath was pulled and manual compression applied until hemostasis is achieved. CORONARY ANGIOGRAPHY DOMINANCE: Right Dominant LEFT HEART ASSESSMENT Left Ventricular Ejection Fraction: Not assessed Elevated Left Ventricular End Diastolic Pressure LVEDP: 14 mmHg LEFT MAIN: Distal: 10 - 25 % Stenosis LEFT ANTERIOR DESCENDING ARTERY: PROX LAD: Diffuse: eccentric: 10 - 25 % Stenosis MID LAD: Mild luminal irregularities, to distal: filling from competitive flow (antegrade flow and CARO graft flow) with no angiographically significant disease distal to the graft anastomosis DIAGONAL 1: Proximal - filling from SVG graft flow with no angiographically si gnificant disease distal to the graft attachment CIRCUMFLEX ARTERY: Mild luminal irregularities OM 1: Proximal - Irregular: 50 % Stenosis OM 2: Proximal - Small caliber vessel: fills late and faintly OM 3: Proximal - Mild luminal irregularities RIGHT CORONARY ARTERY: Mild luminal irregularities RT PDA: Proximal - Small caliber vessel: diffuse 50 % Stenosis GRAFTS: CARO graft to the Mid LAD is patent Saphenous Vein graft to the 1st Diagonal is patent Saphenous Vein graft to the CIRC is totally occluded Saphenous Vein graft to the RPDA is totally occluded AORTIC ROOT: Angiographically normal Medical Necessity - Tobacco Use Smoking Status: Never smoker Assessment/Plan 1. Paroxysmal atrial fibrillation/flutter The patient has had recurrence of her paroxysmal atrial fibrillation/flutter. She has been on medical therapy for this which apparently is included rate cont rol therapy and anticoagulant therapy. At the present time she is in sinus rhythm. She will continue medical management with adjustment as needed based upon her other diagnosis and need for further evaluation and care. 2. Non-ST segment elevation SC The patient does have findings compatible with a non-ST segment elevation SC. It is unclear whether this was a type I event that triggered her symptoms and findings versus a type II event brought out by her recurrent atrial dysrhythmia superimposed upon concerns of anemia, etc. At the moment she appears to be symptomatically stable. Her cardiac enzymes are decreasing. Her ECG is demonstrated no acute ECG changes. She has undergone additional evaluation with diagnostic cardiac catheterization. The results are as noted. She did not require PCI. She will continue medical management with the addition of nitrates. 3. CAD status post CABG The patient does have a history of premature CAD and has undergone CABG. She is undergoing evaluation care as noted. She is continuing medical management. She has undergone evaluation with diagnostic cardiac catheterization as noted. She did not require PCI. She will continue medical therapy with the addition of nitrates. 4. Hyperlipidemia She will continue medical management. 5. Hypertension Her blood pressure will be followed and her medicines can be adjusted as needed. 6. Diabetes mellitus She will continue evaluation care per internal medicine. 7. Chronic renal insufficiency on chronic hemodialysis She has been evaluated by nephrology. She will continue with hemodialysis. 8. Anemia This may be secondary to her chronic renal insufficiency. The patient did receive PRBCs. Her H&H did improve. His had no post PVC volume related issues thus far. Comment: Overall, at the present time, she will continue conservative medical management with adjustment of medicines as needed. She has been recommended to continue to follow with her primary cardiovascular team from [facility] in [place], [place] as an outpatient. This note was generated using a voice recognition system and there may be incorrect words, spelling or punctuation that were not noted when reviewing the office note prior to saving.
--- NOTE | 2020-06-09 10:04 | CL.D_ITS ---
Patient Name: ERIKA DE LUNA Study Date: 06/09/2020 Performing: Shai Kaminski MD Ht: 66 inches 168 cm : 1965 Wt: 216.3 lbs 98 kg Age: 54 Gender: female BSA: 2.07 PROCEDURE(S) PERFORMED MU13-[id number]/COR/CABG DC11-AO ROOT ANGIO WITH HEART CATH CLINICAL PROFILE AND INDICATIONS Indications: Cardiac Arrythmia, ACS > 24 hrs Heart Failure: None Stress/Imaging Stress/Image Study Performed: No Angina Classification Anginal Classification w/in 2 Weeks: CCS IV CAD Presentations: Non-STEMI. CONCLUSIONS Elevated Left Ventricular End Diastolic Pressure (mild) [place] Multivessel CAD CARO to LAD: patent SVG to DX1: patent SVG to LCX: occluded SVG to RPDA: occluded RECOMMENDATIONS Risk factor modification Medical therapy DESCRIPTION OF PROCEDURE The patient arrived to the procedure lab. The risks and benefits of the procedure as well as a full d escription of our services here and current unavailability of surgical backup were fully explained to the patient and/or their significant other prior to the catheterization. The Timeout was completed, verifying the correct patient and procedure. The patient's procedural site was prepped and draped in the usual fashion. Local anesthetic was given subcutaneously to right groin region with Lidocaine 2%. Using a modified Seldinger technique, arterial access was obtained via the right femoral artery, a 4 Fr sheath was inserted Left Coronary Artery selective angiography was performed in multiple views us ing a 4 Fr. JL5 catheter. Right Coronary Artery selective angiography was then performed in multiple views using a 4 Fr. 3DRC catheter. Saphenous Vein graft to the DIAG 1 selective angiography was perfo rmed in multiple views using a 4 Fr. 3DRC catheter. Saphenous Vein graft to the Circumflex selective angiography was performed in multiple views using a 4 Fr. JR4 catheter-occluded. Left inter nal mammary artery graft to the LAD selective angiography was performed in multiple views using a 4 F r. IM catheter. Ascending (root) aorta selective angiography was then performed in single view. Ascen ding (root) aorta selective angiography was then performed in single view.The arterial sheath was pul led and manual compression applied until hemostasis is achieved. CORONARY ANGIOGRAPHY DOMINANCE: Right Dominant LEFT HEART ASSESSMENT Left Ventricular Ejection Fraction: Not assessed Elevated Left Ventricular End Diastolic Pressure LVEDP: 14 mmHg LEFT MAIN: Distal: 10 - 25 % Stenosis LEFT ANTERIOR DESCENDING ARTERY: PROX LAD: Diffuse: eccentric: 10 - 25 % Stenosis MID LAD: Mild luminal irregularities, to distal: filling from competitive flow (antegrade flow and LI MA graft flow) with no angiographically significant disease distal to the graft anastomosis DIAGONAL 1: Proximal - filling from SVG graft flow with no angiographically significant disease dista l to the graft attachment CIRCUMFLEX ARTERY: Mild luminal irregularities OM 1: Proximal - Irregular: 50 % Stenosis OM 2: Proximal - Small caliber vessel: fills late and faintly OM 3: Proximal - Mild luminal irregularities RIGHT CORONARY ARTERY: Mild luminal irregularities RT PDA: Proximal - Small caliber vessel: diffuse 50 % Stenosis GRAFTS: CARO graft to the Mid LAD is patent Saphenous Vein graft to the 1st Diagonal is patent Saphenous Vein graft to the CIRC is totally occluded Saphenous Vein graft to the RPDA is totally occluded AORTIC ROOT: Angiographically normal COMPLICATIONS No Complications PROCEDURE MEDICATIONS Versed 1 mg IV Versed 1 mg IV Fentanyl 50 mcg IV Fentanyl 50 mcg IV Oxygen: 2 L/min via nasal cannula SUMMARY OF HEMODYNAMIC DATA Time AIR REST ECG 08:14:57 AO 178/58 (99) SA 08:28:33 LV 153/-9, 21 09:24:47 LV 141/-5, 14 09:24:54 LVp 154/-13, 17 09:25:09 AOp 151/53 (91) 09:25:14 Signed By Shai Kaminski MD On 06/09/2020 10:03:55 Shai Kaminski MD
[2020-06-09 11:35] LABS: Bedside Glucose 497 mg/dL (70-110)
[2020-06-09] MEDS: Insulin Lispro 100 UNIT/ML INSULN.PEN 25 UNIT SC (11:44)
--- NOTE | 2020-06-09 13:17 | PCM.PN.HOSP ---
Patient Problems: Active and Suspected Problems (Last Reviewed 07/28/19 @ 13:14 by Temi Gutierrez) NSTEMI (non-ST elevated myocardial infarction) (Acute) PAF (paroxysmal atrial fibrillation) (Acute) Atrial fibrillation/flutter (Acute) Subjective: BGT markedly elevated > 800 this am. D/W patient and she is unclear why. was given the 30 units last night of Lantus per nsg. Ate dinner late 2/2 HD yesterday. Vitals/I&O's: Vital Signs Temp Pulse Resp BP Pulse Ox 97.4 F L 60 18 143/62 H 95 06/09/20 11:55 06/09/20 11:55 06/09/20 11:55 06/09/20 11:55 06/09/20 11:55 Oxygen Flow Rate (L/min) 96 Oxygen Delivery Method Room Air Weight: 97.5 kg Body Mass Index (BMI) 35.2 Finger Stick Blood Glucose 289 Intake and Output for Last 24 Hours 06/07/20 06/08/20 06/09/20 23:59 23:59 23:59 Intake Total 720 / 720 495 / 495 60 / 60 Output Total 0 / 0 2200 / 2200 200 / 200 Balance 720 / 720 -1705 / -1705 -140 / -140 General: Alert, Oriented x3, Cooperative, No apparent distress, Well developed, Well nourished Oral: Moist Mucosa, No Gingival or Mucosal Lesions/ Ulcerations, - - no thrush Neck: Supple, Trachea Midline Lungs: Clear to auscultation, Normal air movement, No rhonchi, No wheeze, No rales Cardiovascular: Regular rate, Regular Rhythm, Normal S1, Normal S2, No murmurs, No Ectopic Activity, No rub noted, No Gallop Abdomen: Bowel Sounds Present, Soft, Non Tender, Non-Distended, No Hepato-splenomegaly, No hernias noted Extremities: No clubbing, No cyanosis, No edema, Capillary Refill Less than 3 Seconds, Peripheral Pulses Normal, - - R groin cath site soft with clean and dry bandage, R UE fistula with bruit and thrill Skin: No rashes, No breakdown Neurological: Cranial nerves II-XII grossly intact, Neuro grossly intact Laboratory Results 06/08/20 09:05: Blood Type A NEGATIVE, Antibody Screen NEGATIVE, Crossmatch See Detail 06/08/20 17:03: POC Glucose 138 H 06/08/20 21:42: POC Glucose 302 H 06/09/20 05:55: POC Glucose > 500 H* 06/09/20 05:56: POC Glucose > 500 H* 06/09/20 06:00: WBC 3.5 L, RBC 2.81 L, Hgb 8.9 L, Hct 26.9 L, MCV 95.7, MCH 31.7, MCHC 33.1, RDW Std Deviation 47.5 H, RDW Coeff of [place] 14.1, Plt Count 207, MPV 10.6, Immature Gran % (Auto) 1.100 H, Neut % (Auto) 62.3, Lymph % (Auto) 18.9 L, Hinds % (Auto) 8.6, Eos % (Auto) 8.0 H, Baso % (Auto) 1.1 H, Absolute Neuts (auto) 2.2, Absolute Lymphs (auto) 0.66 L, Nucleated RBC % 0.6 06/09/20 06:00: Sodium 126 L, Potassium 4.1, Chloride 91 L, Carbon Dioxide 23.0, Anion Gap 12, BUN 36 H, Creatinine 5.65 H, Estim Creat Clear Calc 10.78, Est GFR (MDRD) Af Amer 10 L, Est GFR (MDRD) Non-Af 8 L, BUN/Creatinine Ratio 6.4 L, Glucose 838 H*, Calcium 7.5 L, TSH 7.41 H 06/09/20 11:25: POC Glucose 497 H* Current Medications Acetaminophen (Acetaminophen 325 Mg Tablet) 650 mg PO Q6H PRN PRN PRN Reason: Pain Score 1-10/Temp > 100.7 F Al Hydroxide/Mg Hydroxide (Mag Hydrox/Al Hydrox/Simeth 30 Ml Udc) 30 ml PO Q6H PRN PRN PRN Reason: Gastric Burning Albuterol Sulfate (Albuterol 2.5 Mg/3 Ml Vial.Neb.) 2.5 mg INHALATION Q2H PRN PRN PRN Reason: SOB/Wheezing Amlodipine Besylate (Amlodipine 10 Mg Tablet) 10 mg PO DAILY [facility] Last Admin: 06/09/20 06:01 Dose: 10 mg Documented by: Apixaban (Apixaban 2.5 Mg Tablet) 2.5 mg PO BID [facility] Aspirin (Aspirin E.C. 81 Mg Tablet) 81 mg PO DAILY@0800 [facility] Last Admin: 06/09/20 06:01 Dose: 81 mg Documented by: Atorvastatin Calcium (Atorvastatin Calcium 80 Mg Tablet) 80 mg PO QHS [facility] Last Admin: 06/08/20 21:44 Dose: 80 mg Documented by: Carvedilol (Carvedilol 12.5 Mg Tablet) 25 mg PO BID [facility] Last Admin: 06/09/20 06:01 Dose: 25 mg Documented by: Ferrous Sulfate (Ferrous Sulfate 325 Mg Tablet) 325 mg PO DAILY@1200 [facility] Last Admin: 06/08/20 11:43 Dose: 325 mg Documented by: Heparin Sodium (Beef Lung) (Heparin Lock 500 Unit/5 Ml In 10 Ml Syringe) 500 unit IV UD PRN PRN Reason: HEPARIN FLUSH Hydralazine HCl (Hydralazine 50 Mg Tablet) 100 mg PO TID [facility] Last Admin: 06/09/20 06:00 Dose: 100 mg Documented by: Hydralazine HCl (Hydralazine 20 Mg/Ml Vial) 10 mg IV Q4H PRN PRN PRN Reason: Sbp Greater Than 160 Sodium Chloride () 1,000 mls @ 15 mls/hr IV .Q48H [facility] Last Infusion: 06/08/20 06:19 Dose: 0 mls/hr Documented by: Sodium Chloride () 1,000 mls @ 0 mls/hr IV .Q0M [facility] Insulin Glargine (Insulin Glargine 100 Units/Ml Pen) 30 units SC QHS [facility] Last Admin: 06/08/20 21:48 Dose: 30 units Documented by: Insulin Human Lispro (Insulin Lispro 100 Unit/Ml Insuln.Pen) 10 unit SC 0800,1200,1700 [facility] Last Admin: 06/09/20 11:46 Dose: Not Given Documented by: Insulin Human Lispro (Insulin Lispro 100 Unit/Ml Insuln.Pen) 0 unit SC TIDAC [facility]; Protocol Last Admin: 06/09/20 11:46 Dose: Not Given Documented by: Isosorbide Mononitrate (Isosorbide Mononitrate 30 Mg Tablet) 30 mg PO DAILY [facility] Labetalol HCl (Labetalol (Prefilled) 20 Mg/4 Ml) 5 mg IV X1 PRN PRN Reason: SBP > 160 prior to sheath pull Levetiracetam (Levetiracetam 250 Mg Tablet) 250 mg PO BID [facility] Levothyroxine Sodium (Levothyroxine 112 Mcg Tablet) 112 mcg PO DAILY@0600 [facility] Last Admin: 06/09/20 06:00 Dose: 112 mcg Documented by: Melatonin (Melatonin 3 Mg Tablet) 3 mg PO QHS PRN PRN PRN Reason: INSOMNIA Metoclopramide HCl (Metoclopramide 10 Mg Tablet) 10 mg PO Q6H PRN PRN Reason: NAUSEA Morphine Sulfate (Morphine 2 Mg/Ml Syringe) 2 mg IV Q3H PRN PRN PRN Reason: Pain Score 6-10 Multivitamins (Multivitamins,Therapeutic Tablet) [facility] Last Admin: 06/08/20 09:39 Dose: 1 tablet Documented by: Nitroglycerin (Nitroglycerin (Inpatient Use) 0.4 Mg Tab.Subl) 0.4 mg SUBLINGUAL Q5M PRN PRN Reason: CARDIAC/CHEST PAIN Pantoprazole Sodium (Pantoprazole Sodium 20 Mg Tablet) 20 mg PO DAILY [facility] Last Admin: 06/08/20 09:39 Dose: 20 mg Documented by: Promethazine HCl (Promethazine 25 Mg Tablet) 12.5 mg PO Q6H PRN PRN Reason: NAUSEA Last Admin: 06/07/20 10:48 Dose: 12.5 mg Documented by: Sodium Chloride (0.9% Saline Lock 10 Ml Syringe) 10 - 40 ml IV UD PRN PRN Reason: SALINE FLUSH Last Admin: 06/08/20 09:42 Dose: 30 ml Documented by: STROKE Vital Signs/Narrative: Vital Signs Temp Pulse Resp BP Pulse Ox 06/09/20 11:55 97.4 F L 60 18 143/62 H 95 06/09/20 11:40 97.6 F L 61 16 143/60 H 92 06/09/20 11:25 61 16 143/60 H 92 06/09/20 11:00 61 06/09/20 10:55 60 16 140/62 H 90 06/09/20 10:40 62 16 141/62 H 91 06/09/20 10:25 62 16 162/69 H 92 06/09/20 10:10 98.0 F 63 18 156/68 H 96 Medical Necessity - Tobacco Use Smoking Status: Never smoker Assessment/Plan All Active Problems (Last Reviewed 07/28/19 @ 13:14 by Temi Gutierrez) NSTEMI (non-ST elevated myocardial infarction) (Acute) PAF (paroxysmal atrial fibrillation) (Acute) Atrial fibrillation/flutter (Acute) DKA (diabetic ketoacidoses) (Resolved) Problem with vascular access (Resolved) A-Fib with RVR with H/O PAF -remains in NSR -continue Coreg -restart Eliquis tomorrow per d/w cards -cards following NSTEMI -cath done 06/09 and showed a patent CARO to LAD and SVG to DX1/Occluded SVG to LCX and SVG to RPDA -continued medical mgt was recommended -last dose of Eliquis was 11:30 pm 06/06--> restart in am -ASA 81 mg daily -continue home BB -statin CAD s/p CABG -see above ESRD on HD -HD MWF -consult Nephro Chronic Anemia 2/2 Renal Disease -continue Fe -monitor -received 1 u PRBC yesterday -hgb is stable Hypothyroidism -check TSH -continue Synthroid DM-1 -continue lantus 30 u at HS--> unclear why there was such a marked increase this am with increased insulin -continue log 10 u TID with meals -SSI -cardiac/carb control diet -A1c 10--> needs more aggressive outpt mgt -BGT GERD -PPI Gastroparesis continue home meds HTN/HPL -continue Coreg/Imdur and Hydralazine -increase Imdur to 60 mg daily -Statin RAGHAVENDRA -CPAP if pt is compliant DVT Prophylaxis -Heparin ggt for now Code Status -Full Dispo -d/c tomorrow -will need to see if can change HD time tomorrow of if will need HD here prior to d/c Inpatient E&M: 30615 Subs Hosp L2
--- NOTE | 2020-06-09 13:54 | PN.RENAL_ITS ---
Patient Problems: Active and Suspected Problems (Last Updated 06/09/20 @ 13:41 by Alessia Rodriguez) NSTEMI (non-ST elevated myocardial infarction) (Acute) PAF (paroxysmal atrial fibrillation) (Acute) Atrial fibrillation/flutter (Acute) Subjective: no cp/sob no c/o - Physical Exam Vitals/I&O's: Vital Signs Temp Pulse Resp BP Pulse Ox 98.2 F 62 18 141/65 H 96 06/09/20 12:55 06/09/20 12:55 06/09/20 12:55 06/09/20 12:55 06/09/20 12:55 Oxygen Flow Rate (L/min) 96 Oxygen Delivery Method Room Air Weight: 97.5 kg Body Mass Index (BMI) 35.2 Finger Stick Blood Glucose 289 Intake and Output for Last 24 Hours 06/07/20 06/08/20 06/09/20 23:59 23:59 23:59 Intake Total 720 / 720 495 / 495 60 / 60 Output Total 0 / 0 2200 / 2200 200 / 200 Balance 720 / 720 -1705 / -1705 -140 / -140 General: Alert, Cooperative HEENT: Atraumatic, Normocephalic Oral: Moist Mucosa Neck: Supple, Trachea Midline Lungs: Clear to auscultation, Normal air movement Cardiovascular: Regular rate, Regular Rhythm, Normal S1, Normal S2 Abdomen: Bowel Sounds Present, Soft, Non Tender, Non-Distended Extremities: No edema Laboratory Results 06/08/20 09:05: Blood Type A NEGATIVE, Antibody Screen NEGATIVE, Crossmatch See Detail 06/08/20 17:03: POC Glucose 138 H 06/08/20 21:42: POC Glucose 302 H 06/09/20 05:55: POC Glucose > 500 H* 06/09/20 05:56: POC Glucose > 500 H* 06/09/20 06:00: WBC 3.5 L, RBC 2.81 L, Hgb 8.9 L, Hct 26.9 L, MCV 95.7, MCH 31.7, MCHC 33.1, RDW Std Deviation 47.5 H, RDW Coeff of [place] 14.1, Plt Count 207, MPV 10.6, Immature Gran % (Auto) 1.100 H, Neut % (Auto) 62.3, Lymph % (Auto) 18.9 L, [place] % (Auto) 8.6, Eos % (Auto) 8.0 H, Baso % (Auto) 1.1 H, Absolute Neuts (auto) 2.2, Absolute Lymphs (auto) 0.66 L, Nucleated RBC % 0.6 06/09/20 06:00: Sodium 126 L, Potassium 4.1, Chloride 91 L, Carbon Dioxide 23.0, Anion Gap 12, BUN 36 H, Creatinine 5.65 H, Estim Creat Clear Calc 10.78, Est GFR (MDRD) Af Amer 10 L, Est GFR (MDRD) Non-Af 8 L, BUN/Creatinine Ratio 6.4 L, Glucose 838 H*, Calcium 7.5 L, TSH 7.41 H 06/09/20 11:25: POC Glucose 497 H* Current Medications Acetaminophen (Acetaminophen 325 Mg Tablet) 650 mg PO Q6H PRN PRN PRN Reason: Pain Score 1-10/Temp > 100.7 F Al Hydroxide/Mg Hydroxide (Mag Hydrox/Al Hydrox/Simeth 30 Ml Udc) 30 ml PO Q6H PRN PRN PRN Reason: Gastric Burning Albuterol Sulfate (Albuterol 2.5 Mg/3 Ml Vial.Neb.) 2.5 mg INHALATION Q2H PRN PRN PRN Reason: SOB/Wheezing Amlodipine Besylate (Amlodipine 10 Mg Tablet) 10 mg PO DAILY [facility] Last Admin: 06/09/20 06:01 Dose: 10 mg Documented by: Apixaban (Apixaban 2.5 Mg Tablet) 2.5 mg PO BID [facility] Aspirin (Aspirin E.C. 81 Mg Tablet) 81 mg PO DAILY@0800 [facility] Last Admin: 06/09/20 06:01 Dose: 81 mg Documented by: Atorvastatin Calcium (Atorvastatin Calcium 80 Mg Tablet) 80 mg PO QHS [facility] Last Admin: 06/08/20 21:44 Dose: 80 mg Documented by: Carvedilol (Carvedilol 12.5 Mg Tablet) 25 mg PO BID [facility] Last Admin: 06/09/20 06:01 Dose: 25 mg Documented by: Ferrous Sulfate (Ferrous Sulfate 325 Mg Tablet) 325 mg PO DAILY@1200 [facility] Last Admin: 06/08/20 11:43 Dose: 325 mg Documented by: Heparin Sodium (Beef Lung) (Heparin Lock 500 Unit/5 Ml In 10 Ml Syringe) 500 unit IV UD PRN PRN Reason: HEPARIN FLUSH Hydralazine HCl (Hydralazine 50 Mg Tablet) 100 mg PO TID [facility] Last Admin: 06/09/20 06:00 Dose: 100 mg Documented by: Hydralazine HCl (Hydralazine 20 Mg/Ml Vial) 10 mg IV Q4H PRN PRN PRN Reason: Sbp Greater Than 160 Sodium Chloride () 1,000 mls @ 15 mls/hr IV .Q48H [facility] Last Infusion: 06/08/20 06:19 Dose: 0 mls/hr Documented by: Sodium Chloride () 1,000 mls @ 0 mls/hr IV .Q0M [facility] Insulin Glargine (Insulin Glargine 100 Units/Ml Pen) 30 units SC QHS [facility] Last Admin: 06/08/20 21:48 Dose: 30 units Documented by: Insulin Human Lispro (Insulin Lispro 100 Unit/Ml Insuln.Pen) 10 unit SC 0800,1200,1700 [facility] Last Admin: 06/09/20 11:46 Dose: Not Given Documented by: Insulin Human Lispro (Insulin Lispro 100 Unit/Ml Insuln.Pen) 0 unit SC TIDAC [facility]; Protocol Last Admin: 06/09/20 11:46 Dose: Not Given Documented by: Isosorbide Mononitrate (Isosorbide Mononitrate 60 Mg Tablet) 60 mg PO DAILY [facility] Labetalol HCl (Labetalol (Prefilled) 20 Mg/4 Ml) 5 mg IV X1 PRN PRN Reason: SBP > 160 prior to sheath pull Levetiracetam (Levetiracetam 250 Mg Tablet) 250 mg PO BID [facility] Levothyroxine Sodium (Levothyroxine 112 Mcg Tablet) 112 mcg PO DAILY@0600 [facility] Last Admin: 06/09/20 06:00 Dose: 112 mcg Documented by: Melatonin (Melatonin 3 Mg Tablet) 3 mg PO QHS PRN PRN PRN Reason: INSOMNIA Metoclopramide HCl (Metoclopramide 10 Mg Tablet) 10 mg PO Q6H PRN PRN Reason: NAUSEA Morphine Sulfate (Morphine 2 Mg/Ml Syringe) 2 mg IV Q3H PRN PRN PRN Reason: Pain Score 6-10 Multivitamins (Multivit[facility],Therapeutic Tablet) [facility] Last Admin: 06/08/20 09:39 Dose: 1 tablet Documented by: Nitroglycerin (Nitroglycerin (Inpatient Use) 0.4 Mg Tab.Subl) 0.4 mg SUBLINGUAL Q5M PRN PRN Reason: CARDIAC/CHEST PAIN Pantoprazole Sodium (Pantoprazole Sodium 20 Mg Tablet) 20 mg PO DAILY [facility] Last Admin: 06/08/20 09:39 Dose: 20 mg Documented by: Promethazine HCl (Promethazine 25 Mg Tablet) 12.5 mg PO Q6H PRN PRN Reason: NAUSEA Last Admin: 06/07/20 10:48 Dose: 12.5 mg Documented by: Sodium Chloride (0.9% Saline Lock 10 Ml Syringe) 10 - 40 ml IV UD PRN PRN Reason: SALINE FLUSH Last Admin: 06/08/20 09:42 Dose: 30 ml Documented by: Medical Necessity - Tobacco Use Smoking Status: Never smoker Assessment/Plan All Active Problems (Last Updated 06/09/20 @ 13:41 by Alessia Rodriguze) NSTEMI (non-ST elevated myocardial infarction) (Acute) PAF (paroxysmal atrial fibrillation) (Acute) Atrial fibrillation/flutter (Acute) DKA (diabetic ketoacidoses) (Resolved) Problem with vascular access (Resolved) ESRD mwf HD 3.5 hours HD per patient request. Dialysis tomorrow here if not discharged Anemia start DEBO if prolonged stay CKD MBD monitor ca phos binders prn Elevated troponin s/p cardiac cath per cards discussed With the patient
[2020-06-09] MEDS: proMETHazine 25 MG Tablet 12.5 MG PO (14:05)
[2020-06-09] MEDS: Multivitamins,Therapeutic Tablet 1 TABLET PO (14:12)
[2020-06-09] MEDS: Pantoprazole Sodium 20 MG Tablet PO (14:12)
[2020-06-09] MEDS: Ferrous Sulfate 325 MG Tablet PO (14:12)
[2020-06-09] MEDS: levETIRAcetam 250 MG Tablet PO ×2 (14:12→23:03)
[2020-06-09] MEDS: Metoclopramide 10 MG Tablet PO (16:28)
[2020-06-09 16:46] LABS: Bedside Glucose 90 mg/dL (70-110)
[2020-06-09] MEDS: Atorvastatin Calcium 80 MG Tablet PO (23:04)
[2020-06-09] MEDS: Acetaminophen 325 MG Tablet 650 MG PO (23:10)
[2020-06-10] MEDS: Insulin Lispro 100 UNIT/ML INSULN.PEN SC ×2 (00:17→03:13)
[2020-06-10 02:11] LABS: Bedside Glucose 441 mg/dL (70-110)
[2020-06-10 03:00] VITALS: PULSE 63
[2020-06-10 04:01] LABS: Bedside Glucose 262 mg/dL (70-110)
[2020-06-10 04:30] VITALS: BP 146/65; PULSE 62; RESP 16; TEMP 36.9; O2SAT 97
[2020-06-10 06:05] VITALS: BP 152/68; PULSE 64
[2020-06-10] MEDS: Levothyroxine 112 MCG Tablet PO (06:05)
[2020-06-10] MEDS: hydrALAZINE 50 MG Tablet 100 MG PO (06:05)
[2020-06-10 06:46] LABS: Bedside Glucose 108 mg/dL (70-110)
[2020-06-10 06:47] VITALS: PULSE 61
[2020-06-10 07:00] VITALS: PULSE 61
[2020-06-10 07:17] LABS: Absolute Lymphocyte Count 0.91 X10^3/uL (0.83-4.51); Absolute Neutrophil Count 2.6 X10^3/uL (2.0-7.7); Basophil# 0.04 X10^3/uL; Basophil% 0.9 % (0-1); Eosinophil# 0.33 X10^3/uL; Eosinophils% 7.6 % (0-5); Lymphocyte # 0.91 X10^3/ul (4.0); Mean Corp Hgb Conc 33.3 g/dL (32-36); Mean Corpuscular Volume 96.1 fL (81-99); Mean Platelet Vol. 10.1 fl (6.2-12.0); Monocyte# 0.41 X10^3/uL; Monocyte% 9.5 % (0-10); NRBC Flagged by Analyzer 0 % (0-5); Neutrophil # 2.61 X10^3/uL (2.7-7.7); Neutrophil % 60.3 % (47-70); Platelet Count 214 K/mm3 (150-450); RBC Distribution Width CV 14.4 % (11.6-14.6); RBC Distribution Width SD 47.2 fl (35.1-43.9); Red Blood Count 2.81 M/mm3 (4.2-5.4); White Blood Count 4.3 K/mm3 (4.4-11.0)
[2020-06-10 07:43] LABS: Anion Gap 11 (5-15); BUN 47 mg/dL (7-18); BUN/Creat Ratio 6.2 RATIO (10-20); Calcium,Total 8.6 mg/dL (8.5-10.1); Chloride 97 mmol/L (98-107); Creatinine, Serum 7.61 mg/dL (0.55-1.02); EST Glomerular Filtration Rate 6 mL/min (>60); Est Glom Filt Rate - Afr Amer 7 mL/min (>60); Glucose 91 mg/dL (74-106); Potassium 3.4 mmol/L (3.5-5.1); Sodium Level 135 mmol/L (136-145)
[2020-06-10] MEDS: Metoclopramide 10 MG Tablet PO (08:09)
[2020-06-10] MEDS: Multivitamins,Therapeutic Tablet 1 TABLET PO (08:11)
[2020-06-10] MEDS: Aspirin E.C. 81 MG Tablet PO (08:11)
[2020-06-10] MEDS: Insulin Lispro 100 UNIT/ML INSULN.PEN 10 UNIT SC (08:17)
--- NOTE | 2020-06-10 08:51 | PCM.DC ---
- Discharge Diagnoses Current Active Problems: Current Active and Chronic Problems (Last Updated 06/09/20 @ 13:41 by Alessia Rodriguez) NSTEMI (non-ST elevated myocardial infarction) (Acute) PAF (paroxysmal atrial fibrillation) (Acute) Atrial fibrillation/flutter (Acute) S/P CABG (coronary artery bypass graft) (Chronic) Hemodialysis patient (Chronic) Anemia (Chronic) Chronic kidney disease (CKD) stage G5/A1, glomerular filtration rate (GFR) less than or equal to 15 mL/min/1.73 square meter and albuminuria creatinine ratio less than 30 mg/g (Chronic) Type I diabetes mellitus, uncontrolled (Chronic) Obesity (Chronic) HLD (hyperlipidemia) (Chronic) CAD (coronary artery disease) (Chronic) Benign hypertension (Chronic) Agitated depression (Chronic) You will use the following diet at home:: Calorie/Carbohydrate Controlled (specify 1200, 1400, etc), Cardiac Your food should be the consistency of: Regular Your liquids should be the consistency of: Regular/Thin Discharge Activity: Return to Normal Activity, May Drive Allergies/Adverse Reactions: Allergies rosiglitazone [From Avandia] Allergy (Mild, Verified 06/07/20 08:08) Hives epoetin lazaro [From Procrit] Allergy (Verified 06/07/20 08:08) Hives Sulfa (Sulfonamide Antibiotics) Allergy (Verified 06/07/20 08:08) Hives metoprolol [From Lopressor] Adverse Reaction (Verified 06/07/20 08:08) Nausea/Vom/Diarrhea tramadol [From Ultram] Adverse Reaction (Verified 06/07/20 08:08) Nausea/Vom/Diarrhea Medications to take at Discharge Aspirin E.C. [Ecotrin] 81 mg PO DAILY@0800 02/10/16 Carvedilol [Coreg (Beta Sully)] 25 mg PO BID 02/10/16 Cholecalciferol (Vitamin D3) [Vitamin D3] 5,000 unit PO DAILY 02/10/16 Levothyroxine [Synthroid] 112 mcg PO DAILY 02/10/16 Multivitamins,Therapeutic [Multivitamin] 1 tab PO DAILY 02/10/16 apixaban 2.5 mg tablet 2.5 mg PO BID 10/29/18 ferrous sulfate 325 mg (65 mg iron) tablet 325 mg PO DAILY tab 10/29/18 hydralazine 50 mg tablet 100 mg PO TID tab 10/29/18 metoclopramide HCl 10 mg tablet 10 mg PO Q6H PRN 10/29/18 promethazine 12.5 mg tablet 12.5 mg PO Q6H PRN 10/29/18 Amlodipine Besylate [Norvasc] 10 mg PO DAILY 12/11/18 Insulin Lispro [Admelog] 10 unit SQ TID 12/11/18 omeprazole 20 mg capsule,delayed release 20 mg PO DAILY 07/28/19 Levetiracetam 250 mg PO BID 06/08/20 Insulin Glargine [Lantus SoloStar Pen] 30 units SC QHS #10 pen 06/10/20 The following prescriptions were given: Insulin Glargine [Lantus SoloStar Pen] 30 units SC QHS #10 pen Transmission Status: Pending to [id number] Primary Care Physician: Angelia Olson MD [Primary Care Provider] - Please follow up with your Primary Care Physician in: 1-2 weeks Test Results: Test results from this visit will be discussed in further detail at your follow-up appointment, if applicable. Please Follow Up With: Your primary class 1 owner operator When: 2-4 weeks
--- NOTE | 2020-06-10 08:59 | CASEMGMT ---
RN CM NOTE: Pt being discharged this AM. Per Bipin, family will be picking pt up shortly and will take pt to [facility] for dialysis at her 0945 chair time. [facility]. Katerine LUNA RN CM
[2020-06-10 09:20] VITALS: BP 146/65; PULSE 62; RESP 16; TEMP 36.9; O2SAT 97
--- NOTE | 2020-06-10 10:21 | DS.PCM_ITS ---
Discharge Date and Diagnosis - Problem List Patient Problems: Active and Suspected Problems (Last Updated 06/09/20 @ 13:41 by Alessia Rodriguez) NSTEMI (non-ST elevated myocardial infarction) (Acute) PAF (paroxysmal atrial fibrillation) (Acute) Atrial fibrillation/flutter (Acute) Date of Admission: 06/07/20 Date of Discharge: 06/10/20 - Primary Discharge Diagnosis Acute Problems: Active Problems (Last Updated 06/09/20 @ 13:41 by Alessia Rodriguez) NSTEMI (non-ST elevated myocardial infarction) (Acute) PAF (paroxysmal atrial fibrillation) (Acute) Atrial fibrillation/flutter (Acute) - Secondary Discharge Diagnosis Chronic Problems: Chronic Problems (Last Updated 06/09/20 @ 13:41 by Alessia Rodriguez) S/P CABG (coronary artery bypass graft) (Chronic) Hemodialysis patient (Chronic) Anemia (Chronic) Chronic kidney disease (CKD) stage G5/A1, glomerular filtration rate (GFR) less than or equal to 15 mL/min/1.73 square meter and albuminuria creatinine ratio less than 30 mg/g (Chronic) Type I diabetes mellitus, uncontrolled (Chronic) Obesity (Chronic) HLD (hyperlipidemia) (Chronic) CAD (coronary artery disease) (Chronic) Benign hypertension (Chronic) Agitated depression (Chronic) Hospital Course and Treatment Imaging Results: [id number] ROOT ANGIO WITH HEART CATH CLINICAL PROFILE AND INDICATIONS Indications: Cardiac Arrythmia, ACS > 24 hrs Heart Failure: None Stress/Imaging Stress/Image Study Performed: No Angina Classification Anginal Classification w/in 2 Weeks: CCS IV CAD Presentations: Non-STEMI. CONCLUSIONS Elevated Left Ventricular End Diastolic Pressure (mild) [place] Multivessel CAD CARO to LAD: patent SVG to DX1: patent SVG to LCX: occluded SVG to RPDA: occluded RECOMMENDATIONS Risk factor modification Medical therapy DESCRIPTION OF PROCEDURE The patient arrived to the procedure lab. The risks and benefits of the procedure as well as a full description of our services here and current unavailability of surgical backup were fully explained to the patient and/or their significant other prior to the catheterization. The Timeout was completed, verifying the correct patient and procedure. The patient's procedural site was prepped and draped in the usual fashion. Local anesthetic was given subcutaneously to right groin region with Lidocaine 2%. Using a modified Seldinger technique, arterial access was obtained via the right femoral artery, a 4Fr sheath was inserted Left Coronary Artery selective angiography was performed in multiple views using a 4 Fr. JL5 catheter. Right Coronary Artery selective angiography was then performed in multiple views using a 4 Fr. 3DRC catheter. Saphenous Vein graft to the DIAG 1 selective angiography was performed in multiple views using a 4 Fr. 3DRC catheter. Saphenous Vein graft to the Circumflex selective angiography was performed in multiple views using a 4 Fr. JR4 catheter-occluded. Left internal mammary artery graft to the LAD selective angiography was performed in multiple views using a 4 Fr. IM catheter. Ascending (root) aorta selective angiography was then performed in single view. Ascending (root) aorta selective angiography was then performed in single view.The arterial sheath was pulled and manual compression applied until hemostasis is achieved. CORONARY ANGIOGRAPHY DOMINANCE: Right Dominant LEFT HEART ASSESSMENT Left Ventricular Ejection Fraction: Not assessed Elevated Left Ventricular End Diastolic Pressure LVEDP: 14 mmHg LEFT MAIN: Distal: 10 - 25 % Stenosis LEFT ANTERIOR DESCENDING ARTERY: PROX LAD: Diffuse: eccentric: 10 - 25 % Stenosis MID LAD: Mild luminal irregularities, to distal: filling from competitive flow (antegrade flow and CARO graft flow) with no angiographically significant disease distal to the graft anastomosis DIAGONAL 1: Proximal - filling from SVG graft flow with no angiographically significant disease distal to the graft attachment CIRCUMFLEX ARTERY: Mild luminal irregularities OM 1: Proximal - Irregular: 50 % Stenosis OM 2: Proximal - Small caliber vessel: fills late and faintly OM 3: Proximal - Mild luminal irregularities RIGHT CORONARY ARTERY: Mild luminal irregularities RT PDA: Proximal - Small caliber vessel: diffuse 50 % Stenosis GRAFTS: CARO graft to the Mid LAD is patent Saphenous Vein graft to the 1st Diagonal is patent Saphenous Vein graft to the CIRC is totally occluded Saphenous Vein graft to the RPDA is totally occluded AORTIC ROOT: Angiographically normal COMPLICATIONS No Complications PROCEDURE MEDICATIONS Versed 1 mg IV Versed 1 mg IV Fentanyl 50 mcg IV Fentanyl 50 mcg IV Oxygen: 2 L/min via nasal cannula SUMMARY OF HEMODYNAMIC DATA Time AIR REST ECG 08:14:57 AO 178/58 (99) SA 08:28:33 LV 153/-9, 21 09:24:47 LV 141/-5, 14 09:24:54 LVp 154/-13, 17 09:25:09 AOp 151/53 (91) 09:25:14 Signed By Shai Kaminski MD On 06/09/2020 10:03:55 Shai Kaminski MD 06/09/20 1003 Date _ Shai Kaminski MD Cosigner Signature: Date (if indicated) CC: Dr. Shai Kaminski MD; Dr. Shai Eddy MD; Dr. Angelia Olson MD ~ Date Dictated: 06/09/20822 Date Transcribed: 06/09/20931 Machine Stemmer: PM Signed Reason For Study: ATRIAL FIB-FLUTTER Procedure This was a 2D Doppler, Color Flow transthoracic echocardiogram. The exam was of adequate technical quality. Exam performed portable in patient room. Left Ventricle Normal LV size. Left ventricular systolic function is normal. The estimated ejection fraction is 65 %. There is evidence of diastolic dysfunction. No regional wall motion abnormalities noted. Right Ventricle Normal RV size. Normal systolic function. Atria The left atrium is moderately enlarged. The right atrium is mildly enlarged. No doppler evidence for ASD. Mitral Valve There is moderate mitral annular calcification. Extension of the mitral annular calcification onto the posterior mitral valve leaflet. Mild (1+) mitral valve insufficiency. Tricuspid Valve Normal tricuspid valve. Moderate (2+) tricuspid valve insufficiency. Right ventricular systolic pressure estimated to be 42 mmHg. Aortic Valve Trisinus/trileaflet aortic valve. Normal aortic valve. Pulmonic Valve Normal pulmonic valve. Trivial pulmonic valve insufficiency. Great Vessels Normal sized aortic root. Pericardium/Pleural No pericardial effusion. MMode/2D Measurements & Calculations LVIDd: 5.0 cm IVSd: 1.1 cm Ao root diam: 3.1 cm LVIDs: 3.3 cm LVPWd: 1.1 cm RVDd: 3.9 cm FS: 33.7 % _ LAV(MOD-bp): 94.0 ml LVAd ap4: 36.6 cm2 SV(MOD- sp4): 87.7 ml LAV(MOD-bp) Indexed: 45.4 ml/m2 EDV(MOD-sp4): 129.9 ml LAV(MOD-sp2): 102.8 ml EDV(sp4-el): 135.2 ml LAV(MOD-sp4): 83.2 ml LVAs ap4: 18.8 cm2 ESV(MOD-sp4): 42.2 ml ESV(sp4-el): 44.1 ml EF(MOD-sp4): 67.5 % EF(sp4-el): 67.4 % _ SV(sp4-el): 91.1 ml LA A4 area: 25.2 cm2 LA dimension(2D): 5.1 cm _ RA A4 area: 21.7 cm2 Time Measurements MV dec time: 0.29 sec Doppler Measurements & Calculations MV E max malvin: 150.5 cm/sec Lat Peak E' Malvin: 8.4 cm/sec Med Peak E' Malvin: 6.6 cm/sec MV A max malvin: 90.2 cm/sec E/E' lat: 17.9 E/E' med: 22.9 MV E/A: 1.7 _ Ao V2 max: 168.0 cm/sec LV V1 max: 149.8 cm/sec PA V2 max: 116.6 cm/sec Ao max P.3 mmHg LV V1 max P.0 mmHg ___ PI end-d malvin: 115.6 cm/sec TR max malvin: 311.8 cm/sec TR max P.9 mmHg Interpretation Summary Left ventricular systolic function is normal. The estimated ejection fraction is 65 %. The left atrium is moderately enlarged. The right atrium is mildly enlarged. There is moderate mitral annular calcification. Extension of the mitral annular calcification onto the posterior mitral valve leaflet. Mild (1+) mitral valve insufficiency. Moderate (2+) tricuspid valve insufficiency. Trivial pulmonic valve insufficiency. Right ventricular systolic pressure estimated to be 42 mmHg. There is evidence of diastolic dysfunction. Cardiology Operations: None Procedures: 2-D Echocardiogram, Cardiac catheterization Summary of Care Provided: Mrs Orr is a 54 year old WF who presented 06/06/2020 to [facility] and was found to be in a-fib. She has a h/o PAF but stated that she has had no episodes in awhile. She was sent home with [facility] but came back to the hospital when her sx persisted and was still in a-fib and was transferred to [facility] for further care. Pt stated that she had mild CP associated and did c/o marked nausea and vomiting. She stated that she had vomited about 20 times with the last time being about 2:30pm. She has had a CABG x 4. Her inital EKG was A- flutter with RVR and a rate of 117. Her repeat EKG prior to transfer showed NSR with no ST-T wave abnormalities. Her troponin at OSH was 271.8 with upper limit of normal being 51.4 and her f/u troponins here were elevated as well. Cardiology evaluated her and elected to do a LHC which had to be delayed as the pt was on DOAC and took her last dose just prior to presented to the hospital f or the 2nd time. She was given 1 U of blood and nephrology was consulted her and dialyzed her on her regular schedule. Her LHC showed no disease that required intervention. Her Hgb A1c was 10 and we increased her long acting insulin to 30 u qhs and she will continue her log 10 u TID. Her blood sugars were better with the changes. We did discuss the need for her to dose reduce the long acting insulin if she was not able to eat and that she should call her PCP if that were to happen. A new script for Lantus was sent. She was d/c in stable condition and had no further issues with her PAF during her admission at [facility]. She is to f/u with her PCP in 1 week. 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 Hypothyroidism DM-1 uncontrolled GERD Gastroparesis HTN RAGHAVENDRA Depression Obesity Discharge time > 35' Patient Problems: Active and Suspected Problems (Last Updated 06/09/20 @ 13:41 by Alessia Rodriguez) NSTEMI (non-ST elevated myocardial infarction) (Acute) PAF (paroxysmal atrial fibrillation) (Acute) Atrial fibrillation/flutter (Acute) - Physical Exam Vitals/I&O's: Vital Signs Temp Pulse Resp BP Pulse Ox 98.4 F 62 16 146/65 H 97 06/10/20 09:20 06/10/20 09:20 06/10/20 09:20 06/10/20 09:20 06/10/20 09:20 Oxygen Flow Rate (L/min) 96 Oxygen Delivery Method Room Air Weight: 97 kg Body Mass Index (BMI) 35.2 Finger Stick Blood Glucose 289 Intake and Output for Last 24 Hours 06/08/20 06/09/20 06/10/20 23:59 23:59 23:59 Intake Total 495 / 495 180 / 180 Output Total 2200 / 2200 200 / 200 0 / 0 Balance -1705 / -1705 -20 / -20 0 / 0 General: Alert, Oriented x3, Cooperative, No apparent distress, Well developed, Well nourished HEENT: Atraumatic, PERRLA, EOMI, Normocephalic, EAC Clear Oral: Moist Mucosa, No Gingival or Mucosal Lesions/ Ulcerations, - - no thrush Neck: Supple, No JVD, Trachea Midline, Thyroid Normal Size and Texture Lungs: Clear to auscultation, Normal air movement, No rhonchi, No wheeze, No rales Cardiovascular: Regular rate, Regular Rhythm, Normal S1, Normal S2, No murmurs, No Ectopic Activity, No rub noted, No Gallop Abdomen: Bowel Sounds Present, Soft, Non Tender, Non-Distended, Obese Extremities: No clubbing, No cyanosis, No edema, Capillary Refill Less than 3 Seconds, Peripheral Pulses Normal, - - L UE fistula with thrill and bruit Musculoskeletal: No Tenderness to Palpation of Joints or Extremities, No Muscle Wasting Lymphatic: No Cervical, Supraclavicular, or Inguinal Adenopathy Neurological: Cranial nerves II-XII grossly intact, Neuro grossly intact, Muscle tone normal, Coordination normal Psych/Mental Status: Appropriate, Flat Affect Laboratory Results 06/09/20 11:25: POC Glucose 497 H* 06/09/20 16:31: POC Glucose 90 06/09/20 22:55: POC Glucose 441 H 06/10/20 03:10: POC Glucose 262 H 06/10/20 06:36: POC Glucose 108 06/10/20 07:05: WBC 4.3 L, RBC 2.81 L, Hgb 9.0 L, Hct 27.0 L, MCV 96.1, MCH 32.0, MCHC 33.3, RDW Std Deviation 47.2 H, RDW Coeff of [place] 14.4, Plt Count 214, MPV 10.1, Immature Gran % (Auto) 0.700, Neut % (Auto) 60.3, Lymph % (Auto) 21.0, [place] % (Auto) 9.5, Eos % (Auto) 7.6 H, Baso % (Auto) 0.9, Absolute Neuts (auto) 2.6, Absolute Lymphs (auto) 0.91, Nucleated RBC % 0 06/10/20 07:05: Sodium 135 L, Potassium 3.4 L, Chloride 97 L, Carbon Dioxide 27.0, Anion Gap 11, BUN 47 H, Creatinine 7.61 H*, Estim Creat Clear Calc 8.00, Est GFR (MDRD) Af Amer 7 L, Est GFR (MDRD) Non-Af 6 L, BUN/Creatinine Ratio 6.2 L, Glucose 91, Calcium 8.6 Discharge Activity: Return to Normal Activity, May Drive Home Medications: Medications to take at Discharge Aspirin E.C. [Ecotrin] 81 mg PO DAILY@0800 02/10/16 Carvedilol [Coreg (Beta Sully)] 25 mg PO BID 02/10/16 Cholecalciferol (Vitamin D3) [Vitamin D3] 5,000 unit PO DAILY 02/10/16 Levothyroxine [Synthroid] 112 mcg PO DAILY 02/10/16 Multivitamins,Therapeutic [Multivitamin] 1 tab PO DAILY 02/10/16 apixaban 2.5 mg tablet 2.5 mg PO BID 10/29/18 ferrous sulfate 325 mg (65 mg iron) tablet 325 mg PO DAILY tab 10/29/18 hydralazine 50 mg tablet 100 mg PO TID tab 10/29/18 metoclopramide HCl 10 mg tablet 10 mg PO Q6H PRN 10/29/18 promethazine 12.5 mg tablet 12.5 mg PO Q6H PRN 10/29/18 Amlodipine Besylate [Norvasc] 10 mg PO DAILY 12/11/18 Insulin Lispro [Admelog] 10 unit SQ TID 12/11/18 omeprazole 20 mg capsule,delayed release 20 mg PO DAILY 07/28/19 Levetiracetam 250 mg PO BID 06/08/20 Insulin Glargine [Lantus SoloStar Pen] 30 units SC QHS #10 pen 06/10/20 Following Prescriptions Were Given to Patient: Insulin Glargine [Lantus SoloStar Pen] 30 units SC QHS #10 pen Transmission Status: Received by [id number] Primary Care Physician: Angelia Olson MD [Primary Care Provider] - Please follow up with your Primary Care Physician in: 1-2 weeks Please Follow Up With: Your primary board member When: 2-4 weeks Medical Necessity - Tobacco Use Smoking Status: Never smoker Meaningful Use Info Meaningful Use Diagnoses (Choose all that apply): None applicable Inpatient E&M: [id number] [facility]
== END 2020-06-10 09:28 | disposition home or self-care (01) | DRG 280 ==
PROVIDERS: Internal Medicine; Internal Medicine Cardiovascular Disease; Student in an Organized Health Care Education/Training Program; Admitting Provider Family Medicine; PCP Student in an Organized Health Care Education/Training Program; Referring Provider Family Medicine; Visit Provider Family Medicine
DX: I21.4 Non-ST elevation (NSTEMI) myocardial infarction (principal); N18.6 End stage renal disease; I48.92 Unspecified atrial flutter; I12.0 Hypertensive chronic kidney disease with stage 5 chronic kidney disease or end stage renal disease; I25.810 Atherosclerosis of coronary artery bypass graft(s) without angina pectoris; I48.0 Paroxysmal atrial fibrillation; Z99.2 Dependence on renal dialysis; D64.9 Anemia, unspecified; D63.1 Anemia in chronic kidney disease; E03.9 Hypothyroidism, unspecified; Z79.4 Long term (current) use of insulin; K21.9 Gastro-esophageal reflux disease without esophagitis; K31.84 Gastroparesis; G47.33 Obstructive sleep apnea (adult) (pediatric); E10.22 Type 1 diabetes mellitus with diabetic chronic kidney disease; Z95.1 Presence of aortocoronary bypass graft; Z95.5 Presence of coronary angioplasty implant and graft; Z79.02 Long term (current) use of antithrombotics/antiplatelets; Z79.899 Other long term (current) drug therapy; E66.9 Obesity, unspecified; Z68.35 Body mass index [BMI] 35.0-35.9, adult; E78.5 Hyperlipidemia, unspecified; I25.10 Atherosclerotic heart disease of native coronary artery without angina pectoris
CPT/HCPCS: 36415; 80048; 80053; 80061; 82962; 83036; 83735; 83880; 84100; 84443; 84484; 85025; 85610; 85730; 86850; 86900; 86901; 86920; 86922; 90937; 93005; 93306; 93455; 93567; 97802; 99152; 99153; 99251; J7030; J7040; P9016; A4216; C1769; G0257; G0463; Q9967